=== PATIENT | male | born 1955 | race Caucasian/White ===

== ENCOUNTER 2025-03-13 19:22 | Inpatient (IN) | payer MEDICARE, MEDICAID ==
[~2025-03-13] VITALS: Ht 175.3 cm; Wt 109.1 kg
[~2025-03-13 19:22] MED LIST: CHOL20007 PO; ESOM40CA39 PO; FERR325T24 PO; HYDR25TA88 PO; LOSA-534 PO; MULT-1018 PO; PANT40TA2 PO; SIMV20TA20 PO; SUCR1TAB PO; TAMS0.4C39 PO
--- NOTE | 2025-03-13 19:44 | ED.PDOC ---
HPI Comments HPI: 69-year-old male who came to ER via EMS for palpitations. Per EMS, patient was just discharged [facility] today (patient states it was yesterday, and that his Fisher catheter was removed, and were trying to rule out CVA and IL). Was noted by family members that patients gait was unsteady so paramedics were called. Patient was tachycardic on scene, so patient was given 300 cc of plain NSS while en route. Patient denies any pain at this time for care. Patient was admitted here last April 2023 diagnosed with: 1. Dizziness likely due to vasovagal syncope vs dehydration vs antihypertensive medication 2. Non-Hodgkin's lymphoma 3. Obesity 4. Generalized weakness likely due to IV immunoglobulin/non-Hodgkin's lymph 5. Microcytic anemia Past Medical History: Hypertension, dyslipidemia, non-Hodgkin's lymphoma Surgical history: Denies Family history: Denies Personal and Social History: Denies REVIEW OF SYSTEMS: PHYSICAL EXAM: HPI: Poor Historian. Patient does not feel any tachycardia or palpitations. History is very limited from the patient. No family members available at bedside for evaluation. EMS stated that the daughter is on her way. Patient is also a patient here in the hospital. Patient just left [facility] today per EMS and yesterday per patient. Patient states that he they had a Fisher catheter in him and they removed it. It does not know what they were doing for him in [facility]. He said they were trying to rule out stroke and rule out heart attack. Patient denies any fall or trauma or injury. Denies any pain anywhere in his body at t his time. Denies any complaints. REVIEW OF SYSTEMS: CONSTITUTIONAL: Denies acute: fever, diaphoresis, chills, HEAD: Denies acute: headache, photophobia Eyes: Denies acute: Double vision, vision loss, eye pain, eye discharge. EARS: Denies acute: tinnitus, hearing loss, ear discharge, ear pain, THROAT: Denies acute: sore throat, swelling, difficulty swallowing , pain with swallowing, change in voice. NECK: Denies acute: neck pain, neck swelling, stiff neck. HEART: Denies acute : chest pain, palpitations, LUNGS: Denies acute: SOB, wheezing, cough, hemoptysis ABDOMEN: Denies acute: abdominal pain, Nausea, Vomiting, diarrhea, melena , hematemesis, hematochezia SKIN: Denies acute: rash, redness, lesions, itchiness. EXTREMITIES: Denies acute: calf pain, numbness, tingling, weakness, denies pain in extremity. Denies acute: Low back pain. Neuro: Denies acute: focal neurological deficit, motor or sensory focal neurological deficit, tremors, seizure like activity, confusion, dizziness, change in mental status, loss of bowel or bladder function, cauda equina like symptoms. : Denies acute: dysuria, hematuria, flank pain, increase in urinary frequency. PSYCH: Denies acute: hallucination, suicidal ideation, homicidal ideation. PHYSICAL EXAM: General: ----no----acute distress, awake and alert. Head: normocephalic, atraumatic. No raccoon's eyes, no kaba sign. Neck: supple, trachea is midline, no swelling. Throat: Normal phonation. Eyes:, no erythema, no purulent discharge, no proptosis, no icterus. Heart: regular tachycardic, no significant murmur appreciated. Lungs: no apparent respiratory distress, Able to speak in full sentences. No wheezing, no rhonchi, no crackles. No stridors Clear to auscultation bilaterally. Abdomen: non tender to palpation, non distended, soft, no guarding, no rebound, + bowel sounds. Morbidly obese. Patient wearing diaper. Neuro: Awake, Alert, oriented to name, self, situation, follows commands GCS=15. Speech is normal. Skin: no petechia, no purpura, no cyanosis, slightly-pale, not jaundice. Lower extremities: --trace bilateral - Pitting edema no deformity, no focal swelling, no calf TTP. Makes eye contact. moves all four extremities. Face: no apparent facial droop. No nuchal rigidity, Kernig's sign, Brudzinski's sign, no meningeal signs. ED COURSE: DISCLAIMER: This medical document was created using an electronic medical record system with voice recognition software and computerized dictation system. Although this document has been carefully reviewed, there might still be some phonetic and typographical errors. Occasional wrong-word or "sound-alike" substitutions may have occurred due to the inherent limitations of voice recognition software. These areas are purely typographical due to imperfections of the software programs and do not reflect any compromise in the patient's medical care. Please read the chart carefully and recognize, using context, where these substitutions have occurred. 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 Allergies: Coded Allergies: NO KNOWN ALLERGIES (Unverified , 05/11/23) Home Meds Active Scripts Pantoprazole Sodium Sesquihydr (Protonix) 40 Mg Tab, 40 MG PO BID, #60 TAB Prov:ANJEL ADAM MD 03/30/23 Sucralfate (Sucralfate) 1 Gm Tab, 1 GM PO BID, #60 TAB Prov:ANJEL ADAM MD 03/30/23 Reported Medications Esomeprazole Magnesium Trihydr (Nexium) 40 Mg Cap, 1 CAP PO DAILY, #30 CAP 5 Refills 03/27/23 Tamsulosin Hcl (Tamsulosin Hcl) 0.4 Mg Cap, 0.4 MG PO HS for 30 Days, MG 03/27/23 Simvastatin (Simvastatin) 20 Mg Tab, 20 MG PO HS for 30 Days 03/27/23 Multiple Vitamin (Multivitamins) Tab, 1 TAB PO DAILY, #90 TAB 3 Refills 03/27/23 Losartan Potassium (Losartan Potassium) 50 Mg Tab, 50 MG PO BID for 30 Days, MG 03/27/23 Hydralazine Hcl (Hydralazine Hcl) 25 Mg Tab, 25 MG PO BID, MG 03/27/23 Ferrous Sulfate (Ferrous Sulfate) 325 Mg Tab, 325 MG PO DAILY, MG 03/27/23 Cholecalciferol (VITAMIN D3) 2,000 Unit Tab, 1 TAB PO DAILY, #30 TAB 5 Refills 03/27/23 Information Source: Patient, Emergency Med Personnel Mode of Arrival: EMS Past Medical History PAST MEDICAL HISTORY: Cancer, High Lipids, HTN Surgical History: Denies all surgeries Family History Family History: Reviewed,noncontributory to illness Social History Smoker: Non-Smoker Alcohol: Denies ETOH Use Drugs: Denies Drug Use Lives In: Home EKG EKG : Pulse Rate (adult): 144 Cardiac Rhythm: JT Was a procedure done? Was a procedure done?: No CP Differential Dx Differential Diagnosis: A-fib, A-Flutter, Angina, Anxiety / Panic Attack, Digo roxann Toxicity, Electrolyte Disorder, Heart Failure, Hyperthyroidism, Hyperventilation, Hypoxia, MAT, IL, PAC's, PSVT, Pulmonary Embolus, Sinus Tachycardia, Torsades De Pointes, Ventricular Dysrhythmia, V-Fib, V-Tach, Other (As far as generalized weakness: Includes but not limited to thyroid disease, encephalopathy, electrolyte abnormality, sepsis, infection, intracranial pathology, drug adverse effects, arrhythmia, kidney insufficiency, ACS, CVA, malignancy, anemia) X-Ray, Labs, Meds, VS Vital Signs Date Time Temp Pulse Resp B/P (MAP) Pulse Ox O2 Delivery O2 Flow Rate FiO2 03/13/25 19:55 98.4 144 17 174/99 (124) 93 98.4 03/13/25 19:55 Room Air* 0 21 03/13/25 19:43 144 03/13/25 19:29 144 03/13/25 19:22 97.7 145 18 129/93 95 97.7 Lab Test 03/13/25 20:56 03/13/25 20:39 03/13/25 19:55 Range/Units Troponin I High Sensitivity 36 16 12 </=54 ng/L White Blood Count 6.3 4.4-10.8 10^3/uL Red Blood Count 5.34 4.5-5.90 10^6/uL Hemoglobin 15.6 13.5-17.5 g/dL Hematocrit 44.5 41.0-53.0 % Mean Corpuscular Volume 83.4 80.0-100.0 fL Mean Corpuscular Hemoglobin 29.2 28.0-32.0 pg Mean Corpuscular Hemoglobin Concent 35.1 32.0-36.0 g/dL Red Cell Distribution Width 13.5 11.8-14.3 % Platelet Count 169 140-450 10^3/uL Mean Platelet Volume 8.5 6.9-10.8 fL Neutrophils (%) (Auto) 81.0 H 37.0-80.0 % Lymphocytes (%) (Auto) 11.7 10.0-50.0 % Monocytes (%) (Auto) 5.0 0.0-12.0 % Eosinophils (%) (Auto) 1.5 0.0-7.0 % Basophils (%) (Auto) 0.8 0.0-2.0 % Neutrophils # (Auto) 5.1 1.6-8.6 10 ^3/uL Lymphocytes # (Auto) 0.7 0.4-5.4 10 ^3/uL Monocytes # (Auto) 0.3 0-1.3 10 ^3/uL Eosinophils # (Auto) 0.1 0-0.8 10 ^3/uL Basophils # (Auto) 0 0-0.2 10 ^3/uL Nucleated Red Blood Cells 0.1 % D-Dimer, Quantitative 0.29 0.0-0.49 mg/L FEU Sodium Level 148 H 136-145 mmol/L Potassium Level 3.1 L 3.5-5.1 mmol/L Chloride Level 108 H 98-107 mmol/L Carbon Dioxide Level 28 20-31 mmol/L Anion Gap 12 5-15 Blood Urea Nitrogen 9 9-23 mg/dL Creatinine 1.01 0.700-1.30 mg/dL Glomerular Filtration Rate Calc 82 >90 mL/min BUN/Creatinine Ratio 8.9 L 10.0-20.0 Serum Glucose 147 H 74-106 mg/dL Hemoglobin A1c 4.8 <5.7 % A1C Lactic Acid Level 1.3 0.4-2.0 mmol/L Calcium Level 9.6 8.7-10.4 mg/dL Magnesium Level 2.0 1.6-2.6 mg/dL Total Bilirubin 0.9 0.2-1.0 mg/dL Aspartate Amino Transferase (AST) 17 13-40 U/L Alanine Aminotransferase (ALT) 12 7-40 U/L Alkaline Phosphatase 117 H 46-116 U/L B-Type Natriuretic Peptide 49.20 0-100 pg/mL Total Protein 7.0 5.7-8.2 g/dL Albumin 4.6 3.2-4.8 g/dL Current Medications Medications (Trade) Dose Ordered Sig/Lauri Route Start Time Stop Time Status Last Admin Clonidine HCl (Catapres Tablet) 0.1 mg Q4HP PRN PO 03/13/25 21:00 03/14/25 01:18 Potassium Chloride (Klor-Con Tablet) 40 meq ONCE ONCE PO 03/13/25 21:00 03/13/25 21:17 DC 03/13/25 23:24 [facility] [id number] [facility] [address] Ph: [phone] DIAGNOSTIC IMAGING Diagnostic Imaging Report : [id number] Signed PATIENT: TERRY ZAVALA ACCT: [id number] UNIT: [id number] : 1955 LOC: OVERFLOW ROOM / BED: [address] [place] [address] AGE / SEX: 69 / M ADM STATUS: ADM IN SERVICE 16 ORDERING PHYSICIAN: YAMILKA THOMPSON DO PROCEDURE(s): ABPL - CT AB PEL WO CON-NO ORAL OR IV REASON: weak, unclear presentation ORDER NUMBER(s): [id number], ACCESSION NUMBER(s): [id number] CLINICAL HISTORY: weak, unclear presentation TECHNIQUE: CT of the abdomen and pelvis was performed without intravenous contrast. This exam was performed according to our departmental dose optimization program. Up-to-date CT equipment and radiation dose reduction techniques are utilized as appropriate. CTDI: 20.67 DLP: 1454.87 WID: COMPARISON: CT CT AB PEL WO CON-NO ORAL OR IV on DOS: 03/25/23 the report FINDINGS: Lower Thorax: Linear bibasilar scarring or atelectasis. 5 mm right middle lobe pulmonary nodule series 4, image 17. Normal-sized heart with small pericardial fluid. Coronary artery calcifications Up to moderate in the left anterior descending coronary artery. Mild aortic valve calcification. Liver and Biliary system: Unremarkable. Spleen: Mild splenomegaly. Adrenal Glands and Kidneys: Normal adrenal glands. Very mild h ydroureteronephrosis without obstructing calculus. There are nonobstructing left renal calculi largest in the left lower pole measuring 1.2 cm on series 5, image 114. Hypodense an intermediate density left renal lesions not optimally evaluated without contrast. Mild perinephric soft tissue stranding. Pancreas and Retroperitoneum: Grossly normal pancreas. Mildly prominent retrope ritoneal lymph nodes. Aorta and Major Vessels: Mildly ectatic aortoiliac vessels. Mild calcified plaque in the aortoiliac vessels. Bowel, Mesentery and Peritoneal space: Normal caliber small and large bowel. Normal appendix. No free air or fluid collection. Mild colonic diverticulosis. Pelvis: Moderate distention of the urinary bladder with mild perivesical stranding. There is prostatomegaly with dystrophic calcifications. No pelvic lymphadenopathy. Soft tissue plaque at the origin and of the right inguinal canal. Small fat containing left inguinal hernia. Abdominal wall and Osseous Structures: Tiny sclerotic foci in the proximal femurs and pelvis likely bone islands. Grade 1 anterolisthesis at L5-S1 with bilateral L5 spondylolysis. Multilevel lower thoracic and lumbar spondylosis. No destructive osseous lesion. IMPRESSION: 1. Moderate distention of the urinary bladder with mild perivesical stranding which could reflect cystitis. Correlate with urinalysis. That could be a component of bladder outlet obstruction given prostatomegaly. 2. Very mild bilateral hydroureteronephrosis without obstructing calculus. This could be related to reflux versus urinary tract infection. This could also be evaluated by urinalysis. 3. Calcified coronary artery disease up to moderate in the left anterior descending coronary artery. 4. Mild splenomegaly. 5. Nonobstructing left renal calculi. ATED BY: SHIMON HERNANDEZ MD DICTATED DATE/TIME: 03/13/252256 SIGNED BY: SHIMON HERNANDEZ MD SIGNED DATE/TIME: 03/13/252256 CC: [place] [address] Ph: [phone] DIAGNOSTIC IMAGING Diagnostic Imaging Report : [id number] Signed PATIENT: TERRY ZAVALA ACCT: [id number] UNIT: [id number] : 1955 LOC: OVERFLOW ROOM / BED: [address] [place] [address] AGE / SEX: 69 / M ADM STATUS: ADM IN SERVICE 16 ORDERING PHYSICIAN: YAMILKA THOMPSON DO PROCEDURE(s): CXRP - CHEST PORTABLE REASON: alonso adams ORDER NUMBER(s): [id number], ACCESSION NUMBER(s): [id number] CHEST RADIOGRAPH Indication: alonso adams Technique: Single frontal view of the chest was obtained COMPARISON: XR CHEST 1 VIEW on DOS: 03/10/25, XY CHEST PORTABLE on DOS: 04/12/23, XY CHEST PORTABLE on DOS: 03/25/23 FINDINGS: Lines and Tubes: None Lungs: Clear Pleura: No effusion. No pneumothorax. Cardiomediastinal contours: Unremarkable Bones: Unremarkable IMPRESSION: 1. No acute disease. ATED BY: ANDREW PICKENS MD DICTATED DATE/TIME: 03/13/252336 SIGNED BY: ANDREW PICKENS MD SIGNED DATE/TIME: 03/13/252336 CC: [place] [address] Ph: [phone] DIAGNOSTIC IMAGING Diagnostic Imaging Report : [id number] Signed PATIENT: TERRY ZAVALA ACCT: [id number] UNIT: [id number] : 1955 LOC: OVERFLOW ROOM / BED: [address] [place] [address] AGE / SEX: 69 / M ADM STATUS: ADM IN SERVICE 17 ORDERING PHYSICIAN: YAMILKA THOMPSON DO PROCEDURE(s): HWOCT - HEAD WITHOUT CONTRAST REASON: weak ORDER NUMBER(s): [id number], ACCESSION NUMBER(s): [id number] CLINICAL HISTORY: weak TECHNIQUE: Helical imaging carried out from skull base to vertex without intravenous contrast. This exam was performed according to our departmental dose optimization program. Up-to-date CT equipment and radiation dose reduction techniques are utilized as appropriate. CTDIVol: 53.75+ 53.71 mGy DLP: 2370.88 mGy-cm WID: COMPARISON: None available. Report from CT head dated 04/12/2023 FINDINGS: Mild cerebral volume loss with concordant prominence of the subarachnoid spaces and ventricles. There is mild patchy low attenuation in the cerebral white matter consistent with nonspecific white matter disease. Chronic lacunar infarcts in the bilateral caudate body. There is no midline shift or mass effect. The laureano white matter interfaces are maintained. The basal cisterns are patent. There is no evidence of acute intracranial hemorrhage or extra-axial fluid collection. The mastoid air cells and visualized paranasal sinuses are well-aerated. IMPRESSION: 1. No acute intracranial abnormality. 2. Mild cerebral volume loss and mild chronic microvascular ischemic change. 3. Chronic lacunar infarcts in the bilateral caudate body. ATED BY: SHIMON HERNANDEZ MD DICTATED DATE/TIME: 03/13/252201 SIGNED BY: SHIMON HERNANDEZ MD SIGNED DATE/TIME: 03/13/252201 CC: Time of 1ST Reevaluation: 19:50 Reevaluation 1ST: Unchanged Patient Education/Counseling: Diagnosis, Treatment Family Education/Counseling: No Family Present Comments MDM: patient presented with the above HPI.--generalized weakness----workup was initiated. patient was found with the above mentioned diagnosis. the following medications were ordered: please refer to order lists of meds and tests obtained by myself Dr. Thompson. Patient ED course and VS have been stabilized. Patient has been reassessed in the ED and remained in a stable condition. Pertinent incidental findings were discussed with the patient and/or family. Patient/family voices understanding and is agreeable with plan. Patient has been observed in the ED adequate length of time to insure impr ovement/stability. Escalation of care considered: Consideration of escalation to observation or admission Potassium was replaced. Patient was ADMITTED to the medicine team for further evaluation and treatment of their presentation. All the reports of any imaging studies that were ordered by myself were reviewed by myself. SEPSIS Sepsis Screen Date sepsis recognized/suspect: Mar 13, 2025 Time Sepsis recognized/suspect: 1921 Recent Procedure: No On Antibiotic Therapy: No Respiratory Rate >20: No Heart Rate >90: No Temp<36 C (96.8 F) or >38.3 C: No SBP <90 or MAP <65 mmHG: No New Acute Mental Status Change: No Is the patient on CPAP, BIPAP,: No Physician Orders Stock Selector (03/13/25 ) Electrocardigram (03/13/25 19:42) Electrocardigram (03/13/25 20:42) Electrocardigram (03/13/25 22:42) Chest Portable (03/13/25 20:17) Ct Ab Pel Wo Con-No Oral Or Iv (03/13/25 20:17) Head Without Contrast (03/13/25 20:18) Atorvastatin (Lipitor) (03/13/25 22:00) Metoprolol Tartrate Tablet (Lopressor Ta (03/13/25 22:00) Amlodipine Tablet (Norvasc Tablet) (03/14/25 10:00) Clonidine Hcl Tablet (Catapres Tablet) (03/13/25 21:00) Allergies (03/13/25 20:55) Code Status (03/13/25 20:55) Sodium Chloride Lock (Saline Lock Ns) (03/13/25 22:00) Oxygen Per Hour (03/13/25 20:55) Hydrocodone-Acet 5/325mg Tab ([place] 5/32 (03/13/25 21:00) Ondansetron Hcl (Zofran) (03/13/25 21:00) Docusate Sodium Capsule (Colace Capsule) (03/13/25 21:00) Fall Risk Precautions In Place QSHIFT (03/13/25 20:55) Complete Blood Count (03/14/25 04:00) Comprehensive Metabolic Panel (03/14/25 04:00) Cardiac Diet-2gna,Lofat,Lochol (03/14/25 Breakfast) Condition: Serious (03/13/25 20:55) Acetaminophen Tablet (Tylenol Tablet) (03/13/25 21:00) Maintain Bed Rest (03/13/25 20:55) Sequential Compression Device (03/13/25 ) Vital Signs Date Time Temp Pulse Resp B/P (MAP) Pulse Ox O2 Delivery O2 Flow Rate FiO2 03/13/25 19:55 98.4 144 17 174/99 (124) 93 98.4 03/13/25 19:55 Room Air* 0 21 03/13/25 19:43 144 03/13/25 19:29 144 03/13/25 19:22 97.7 145 18 129/93 95 97.7 Laboratory Tests Test 03/13/25 19:55 Lactic Acid Level 1.3 mmol/L (0.4-2.0) White Blood Count 6.3 10^3/uL (4.4-10.8) Medications Medications Dose Ordered Sig/Lauri Route Start Time Stop Time Status Last Admin Dose Admin Clonidine HCl 0.1 mg Q4HP PRN PO 03/13/25 21:00 03/14/25 01:18 Potassium Chloride 40 meq ONCE ONCE PO 03/13/25 21:00 03/13/25 21:17 DC 03/13/25 23:24 Departure 1 Departure Time of Disposition: 20:41 Impression: Primary Impression: Tachycardia Additional Impressions: Generalized weakness Hypokalemia Acute urinary retention Disposition: 09 ADMITTED INPATIENT Admit to: Tele Condition: Guarded Discharged With: Self Critical Care Note Critical Care Time?: Yes Heart Score Heart Score: Heart Score Response (Comments) Value History Slightly Suspicious 0 EKG Repolarization Disturb 1 Age >65 2 Risk Factors >3 or Hx ASHD 2 Troponin Normal limit 0 Total 5 I personally scribed for YAMILKA THOMPSON DO ([email or web address]) on 03/13/25 at 19:43. Electronically submitted by Gage Nelson ([facility]). I personally scribed for YAMILKA THOMPSON DO ([email or web address]) on 03/13/25 at 19:51. Electro nically submitted by Gage Nelson ([facility]). I personally scribed for YAMILKA THOMPSON DO ([email or web address]) on 03/13/25 at 22:05. Elec tronically submitted by Gage Nelson ([facility]). YAMILKA THOMPSON DO Mar 13, 2025 19:43
[2025-03-13 20:10] LABS: Hematocrit 44.5 % (41.0-53.0); Hemoglobin 15.6 g/dL (13.5-17.5); Mean Corpuscular Hemoglobin 29.2 pg (28.0-32.0); Mean Corpuscular Volume 83.4 fL (80.0-100.0); Nucleated Red Blood Cells % 0.1 %
[2025-03-13 20:24] LABS: Alanine Aminotransferase 12 U/L (7-40); Albumin 4.6 g/dL (3.2-4.8); Alkaline Phosphatase 117 U/L (46-116); Anion Gap 12 (5-15); BUN/Creatinine Ratio 8.9 (10.0-20.0); Bilirubin, Total 0.9 mg/dL (0.2-1.0); Blood Urea Nitrogen 9 mg/dL (9-23); Calcium 9.6 mg/dL (8.7-10.4); Carbon Dioxide 28 mmol/L (20-31); Chloride 108 mmol/L (98-107); Glucose 147 mg/dL (74-106); Magnesium 2.0 mg/dL (1.6-2.6); Potassium 3.1 mmol/L (3.5-5.1); Sodium 148 mmol/L (136-145); Total Protein 7.0 g/dL (5.7-8.2)
[2025-03-13] MEDS ORDERED: ACETAMINOPHEN 325 MG TAB PO PRN (21:00)
[2025-03-13] MEDS ORDERED: DOCUSATE SOD 100 MG CAP PO PRN (21:00)
[2025-03-13] MEDS: LABETALOL HCL 20 MG/4 ML VL IV ONE (21:00)
[2025-03-13] MEDS ORDERED: HYDROcodone-ACET 5/325MG TAB PO PRN (21:00)
[2025-03-13] MEDS ORDERED: ONDANSETRON HCL 4 MG/2 ML VIAL IV PRN (21:00)
[2025-03-13] MEDS ORDERED: POTASSIUM CHL 20 Meq TABLET PO ONE (21:15)
[2025-03-13] MEDS ORDERED: MORPHINE SULFATE INJ 2 MG/ml SYRG IV PRN (21:30)
[2025-03-13] MEDS ORDERED: NITROGLYCERIN 0.4 MG SL TAB SL PRN (21:30)
--- NOTE | 2025-03-13 21:31 | DVHHP2 ---
History of Present Illness Reason for Visit: Palpitations History of Present Illness The patient is a 69-year-old male with past medical history of non-Hodgkin's lymphoma, currently on remission; but on treatment every 3 months, dementia, hyperlipidemia, and hypertension who presented to [facility] ED with complaint of palpitations. As reported by daughter, patient was just discharged from [facility] today, but developed confusion state, unable to urinate, getting worse that prompted this visit. Daughter states that patient had Fisher catheter at [facility] to rule out stroke, but was removed because he was urinating on his own before discharge. Patient was seen and evalu ated in the ED, laboratory data shows WBC 6.3, platelets 169, sodium 148, potassium 3.1, BUN 9, creatinine 1.01, GFR 82, glucose 147, calcium 9.6, BNP 49.2, troponin 12, D-dimer 0.29, blood pressure 174/99 trending down to 136/96, heart rate 145 trending down to 102, temperature 98.4 F, O2 saturation 93% on oxygen. Head CT showed no acute intracranial abnormality. Please see medication orders section in the computer. On my assessment, daughter at bedside, patient denied chest pain, no headache, dizziness, diaphoresis, shortness of breaths, no diarrhea, nausea, vomiting, fever, no chills. Patient was admitted for further evaluation and medical management. Past Medical History Non-Hodgkin's lymphoma, Dementia, High Lipids, HTN Past Surgical History Denies all surgeries Family History Reviewed, noncontributory to the management of this case. Past Social History The patient lives at home, denies smoking, alcohol or illicit drugs abuse. Review of Systems Constitutional: Yes: Weakness; No: Fever, Chills, Sweats, Malaise, Other Eyes: No: Pain, Vision change, Conjunctivae inflammation, Eyelid inflammation, Other, Redness ENT: No: Ear pain, Ear discharge, Nose pain, Nose discharge, Nose congestion, Mouth pain, Mouth swelling, Throat pain, Throat swelling, Other Respiratory: No: Cough, Dry, Shortness of breath, SOB with excertion, Wheezing, Hemoptysis, Pleuritic Pain, Sputum, Wheezing, Other Cardiovascular: No: Chest Pain, Palpitations, Orthopnea, Paroxysmal Noc. Dyspnea, Edema, Lt Headedness, Other Gastrointestinal: No: Nausea, Vomiting, Abdominal Pain, Diarrhea, Constipation, Melena, Hematochezia, Other Genitourinary: No Dysuria, No Frequency, No Incontinence, No Hematuria; Retention, Other (Fisher catheter) Musculoskeletal: No: other, neck pain, shoulder pain, arm pain, back pain, hand pain, leg pain, foot pain Skin: No: Rash, Lesions, Jaundice, Bruising, Other Neurological: Confusion; No: Weakness, Numbness, Incoordination, Change in speech, Seizures, Other Allergies: Coded Allergies: NO KNOWN ALLERGIES (Unverified , 05/11/23) Medications Current Medications Medications Dose Ordered Sig/Lauri Route Start Time Stop Time Status Last Admin Dose Admin Atorvastatin Calcium 20 mg HS PO 03/13/25 22:00 Metoprolol Tartrate 50 mg BID PO 03/13/25 22:00 Amlodipine Besylate 10 mg DAILY PO 03/14/25 10:00 Clonidine HCl 0.1 mg Q4HP PRN PO 03/13/25 21:00 Sodium Chloride 10 ml Q8HR IV 03/13/25 22:00 Acetaminophen/ Hydrocodone Bitart 1 tab Q4HP PRN PO 03/13/25 21:00 Ondansetron HCl 4 mg Q4HP PRN IV 03/13/25 21:00 Docusate Sodium 100 mg BIDPRN PRN PO 03/13/25 21:00 Acetaminophen 650 mg Q6HP PRN PO 03/13/25 21:00 Exam Vital Signs Vital Signs Date Time Temp Pulse Resp B/P (MAP) Pulse Ox O2 Delivery O2 Flow Rate FiO2 03/13/25 19:55 98.4 144 17 174/99 (124) 93 98.4 03/13/25 19:55 Room Air* 0 21 General Appearance: Alert, Cooperative, No acute distress, Other (Oriented x2) HEENT: Atraumatic, PERRLA, EOMI, Mucous membr. moist/pink Respiratory: Normal air movement Cardiovascular: Regular rate, Normal S1, Normal S2, No murmurs Abdominal: Normal bowel sounds, Soft, No tenderness, No hepatospenomegaly, No masses Extremities: No clubbing, No cyanosis, No edema, Normal pulses, No tenderness/swelling Skin: No rashes, No breakdown, No significant lesion Neuro: Normal speech, Normal tone, Sensation intact, Cranial nerves 3-12 NL, Reflexes 2+, Other (Generalized weakness) Psych/Mental Status: Mental status NL, Mood NL Labs/Xrays Labs Test 03/13/25 20:39 03/13/25 19:55 Range/Units White Blood Count 6.3 4.4-10.8 10^3/uL Red Blood Count 5.34 4.5-5.90 10^6/uL Hemoglobin 15.6 13.5-17.5 g/dL Hematocrit 44.5 41.0-53.0 % Mean Corpuscular Volume 83.4 80.0-100.0 fL Mean Corpuscular Hemoglobin 29.2 28.0-32.0 pg Mean Corpuscular Hemoglobin Concent 35.1 32.0-36.0 g/dL Red Cell Distribution Width 13.5 11.8-14.3 % Platelet Count 169 140-450 10^3/uL Mean Platelet Volume 8.5 6.9-10.8 fL Neutrophils (%) (Auto) 81.0 H 37.0-80.0 % Lymphocytes (%) (Auto) 11.7 10.0-50.0 % Monocytes (%) (Auto) 5.0 0.0-12.0 % Eosinophils (%) (Auto) 1.5 0.0-7.0 % Basophils (%) (Auto) 0.8 0.0-2.0 % Neutrophils # (Auto) 5.1 1.6-8.6 10 ^3/uL Lymphocytes # (Auto) 0.7 0.4-5.4 10 ^3/uL Monocytes # (Auto) 0.3 0-1.3 10 ^3/uL Eosinophils # (Auto) 0.1 0-0.8 10 ^3/uL Basophils # (Auto) 0 0-0.2 10 ^3/uL Nucleated Red Blood Cells 0.1 % D-Dimer, Quantitative 0.29 0.0-0.49 mg/L FEU Sodium Level 148 H 136-145 mmol/L Potassium Level 3.1 L 3.5-5.1 mmol/L Chloride Level 108 H 98-107 mmol/L Carbon Dioxide Level 28 20-31 mmol/L Anion Gap 12 5-15 Blood Urea Nitrogen 9 9-23 mg/dL Creatinine 1.01 0.700-1.30 mg/dL Glomerular Filtration Rate Calc 82 >90 mL/min BUN/Creatinine Ratio 8.9 L 10.0-20.0 Serum Glucose 147 H 74-106 mg/dL Lactic Acid Level 1.3 0.4-2.0 mmol/L Calcium Level 9.6 8.7-10.4 mg/dL Magnesium Level 2.0 1.6-2.6 mg/dL Total Bilirubin 0.9 0.2-1.0 mg/dL Aspartate Amino Transferase (AST) 17 13-40 U/L Alanine Aminotransferase (ALT) 12 7-40 U/L Alkaline Phosphatase 117 H 46-116 U/L B-Type Natriuretic Peptide 49.20 0-100 pg/mL Total Protein 7.0 5.7-8.2 g/dL Albumin 4.6 3.2-4.8 g/dL PATIENT: TERRY ZAVALA ACCT: [id number] UNIT: [id number] : 1955 LOC: OVERFLOW ROOM / BED: [address] [place] [address] AGE / SEX: 69 / M ADM STATUS: ADM IN SERVICE 17 ORDERING PHYSICIAN: YAMILKA THOMPSON DO PROCEDURE(s): HWOCT - HEAD WITHOUT CONTRAST REASON: weak ORDER NUMBER(s): [id number], ACCESSION NUMBER(s): [id number] CLINICAL HISTORY: weak TECHNIQUE: Helical imaging carried out from skull base to vertex without intravenous contrast. This exam was performed according to our departmental dose optimization program. Up-to-date CT equipment and radiation dose reduction techniques are utilized as appropriate. CTDIVol: 53.75+ 53.71 mGy DLP: 2370.88 mGy-cm WID: COMPARISON: None available. Report from CT head dated 04/12/2023 FINDINGS: Mild cerebral volume loss with concordant prominence of the subarachnoid spaces and ventricles. There is mild patchy low attenuation in the cerebral white matter consistent with nonspecific white matter disease. Chronic lacunar infarcts in the bilateral caudate body. There is no midline shift or mass effect. The laureano white matter interfaces are maintained. The basal cisterns are patent. There is no evidence of acute intracranial hemorrhage or extra-axial fluid collection. The mastoid air cells and visualized paranasal sinuses are well-aerated. IMPRESSION: 1. No acute intracranial abnormality. 2. Mild cerebral volume loss and mild chronic microvascular ischemic change. 3. Chronic lacunar infarcts in the bilateral caudate body. SEPSIS Sepsis Screen Date sepsis recognized/suspect: Mar 13, 2025 Time Sepsis recognized/suspect: 1954 Recent Procedure: No On Antibiotic Therapy: No Respiratory Rate >20: No Heart Rate >90: No Temp<36 C (96.8 F) or >38.3 C: No SBP <90 or MAP <65 mmHG: No New Acute Mental Status Change: No Is the patient on CPAP, BIPAP,: No Physician Orders Sack Repairer (03/13/25 ) Urinalysis (03/13/25 19:42) Electrocardigram (03/13/25 19:42) Troponin-I Hs (03/13/25 20:42) Troponin-I Hs (03/13/25 22:42) Electrocardigram (03/13/25 20:42) Electrocardigram (03/13/25 22:42) Chest Portable (03/13/25 20:17) Ct Ab Pel Wo Con-No Oral Or Iv (03/13/25 20:17) Type And Screen (03/13/25 20:17) Head Without Contrast (03/13/25 20:18) Atorvastatin (Lipitor) (03/13/25 22:00) Metoprolol Tartrate Tablet (Lopressor Ta (03/13/25 22:00) Amlodipine Tablet (Norvasc Tablet) (03/14/25 10:00) Clonidine Hcl Tablet (Catapres Tablet) (03/13/25 21:00) Hemoglobin A1c (03/13/25 20:55) Allergies (03/13/25 20:55) Code Status (03/13/25 20:55) Sodium Chloride Lock (Saline Lock Ns) (03/13/25 22:00) Oxygen Per Hour (03/13/25 20:55) Hydrocodone-Acet 5/325mg Tab ([place] 5/32 (03/13/25 21:00) Ondansetron Hcl (Zofran) (03/13/25 21:00) Docusate Sodium Capsule (Colace Capsule) (03/13/25 21:00) Fall Risk Precautions In Place QSHIFT (03/13/25 20:55) Complete Blood Count (03/14/25 04:00) Comprehensive Metabolic Panel (03/14/25 04:00) Cardiac Diet-2gna,Lofat,Lochol (03/14/25 Breakfast) Condition: Serious (03/13/25 20:55) Acetaminophen Tablet (Tylenol Tablet) (03/13/25 21:00) Maintain Bed Rest (03/13/25 20:55) Sequential Compression Device (03/13/25 ) Vital Signs Date Time Temp Pulse Resp B/P (MAP) Pulse Ox O2 Delivery O2 Flow Rate FiO2 03/13/25 19:55 98.4 144 17 174/99 (124) 93 98.4 03/13/25 19:55 Room Air* 0 21 03/13/25 19:43 144 03/13/25 19:29 144 03/13/25 19:22 97.7 145 18 129/93 95 97.7 Laboratory Tests Test 03/13/25 19:55 Lactic Acid Level 1.3 mmol/L (0.4-2.0) White Blood Count 6.3 10^3/uL (4.4-10.8) Assessment/Plan Assessment/Plan Palpitations Tachycardia Hypokalemia Acute urinary retention Generalized weakness Plan 1. Admit to telemetry unit 2. Breathing treatment 3. Pain control management 4. Management of fluids and electrolytes 5. Consultation for Urology/hospitalist 6. Diagnostic tests head CT 7. DVT prophylaxis-on SCDs 8. Repeat labs CBC, CMP in a.m. 9. Continue with current medical management 10. Treatment plan discussed with patient and RN. Patient verbalized understanding. Plan discussed with: Patient, Other (RN) My Orders Orders - ZACH MORIN DNP Procedure Category Date Status Time Atorvastatin (Lipitor) PHA 03/13/25 In Process 22:00 Metoprolol Tartrate PHA 03/13/25 In Process Tablet (Lopressor Ta 22:00 Amlodipine Tablet PHA 03/14/25 In Process (Norvasc Tablet) 10:00 Clonidine Hcl Tablet PHA 03/13/25 In Process (Catapres Tablet) 21:00 Hemoglobin A1c LAB 03/13/25 In Process 20:55 Allergies JAMES 03/13/25 In Process 20:55 Code Status CODE 03/13/25 Transmitted 20:55 Sodium Chloride Lock PHA 03/13/25 In Process (Saline Lock Ns) 22:00 Oxygen Per Hour RT 03/13/25 Transmitted 20:55 Hydrocodone-Acet PHA 03/13/25 In Process 5/325mg Tab ([place] 21:00 Ondansetron Hcl PHA 03/13/25 In Process (Zofran) 21:00 Docusate Sodium PHA 03/13/25 In Process Capsule (Colace 21:00 Fall Risk Precautions JAMES 03/13/[address] 20:55 Complete Blood Count LAB 03/14/25 Verified 04:00 Comprehensive LAB 03/14/25 Verified Metabolic Panel 04:00 Cardiac DIET 03/14/25 Transmitted Diet-2gna,Lofat,Lochol Breakfast Condition: Serious JAMES 03/13/25 In Process 20:55 Acetaminophen Tablet PHA 03/13/25 In Process (Tylenol Tablet) 21:00 Maintain Bed Rest JAMES 03/13/25 In Process 20:55 Sequential JAMES 03/13/25 In Process Compression Device Problem List: (1) Palpitations (2) Tachycardia (3) Hypokalemia (4) Acute urinary retention (5) Generalized weakness Date of Service: Mar 13, 2025 Billing Provider: ZACH MORIN DNP Common Visit Codes: [id number] INP/OBS CARE (HIGH) ZACH MORIN DNP Mar 13, 2025 21:31
[2025-03-13] MEDS: SODIUM CHLOR 0.9% PF (SALINE LOCK) 10ML VIAL/SYR IV SCH (22:00)
[2025-03-13 22:03] VITALS: BP 154/97; PULSE 87; RESP 18; TEMP 98; O2SAT 95
--- NOTE | 2025-03-13 22:05 | DVH ---
CLINICAL HISTORY: weak TECHNIQUE: Helical imaging carried out from skull base to vertex without intravenous contrast. This exam was performed according to our departmental dose optimization program. Up-to-date CT equipment and radiation dose reduction techniques are utilized as appropriate. CTDIVol: 53.75+ 53.71 mGy DLP: 2370.88 mGy-cm WID: COMPARISON: None available. Report from CT head dated 04/12/2023 FINDINGS: Mild cerebral volume loss with concordant prominence of the subarachnoid spaces and ventricles. There is mild patchy low attenuation in the cerebral white matter consistent with nonspecific white matter disease. Chronic lacunar infarcts in the bilateral caudate body. There is no midline shift or mass effect. The laureano white matter interfaces are maintained. The basal cisterns are patent. There is no evidence of acute intracranial hemorrhage or extra-axial fluid collection. The mastoid air cells and visualized paranasal sinuses are well-aerated. IMPRESSION: 1. No acute intracranial abnormality. 2. Mild cerebral volume loss and mild chronic microvascular ischemic change. 3. Chronic lacunar infarcts in the bilateral caudate body.
[2025-03-13 22:41] LABS: Urine Protein, UAD Negative (Negative)
--- NOTE | 2025-03-13 23:00 | DVH ---
CLINICAL HISTORY: weak, unclear presentation TECHNIQUE: CT of the abdomen and pelvis was performed without intravenous contrast. This exam was performed according to our departmental dose optimization program. Up-to-date CT equipment and radiation dose reduction techniques are utilized as appropriate. CTDI: 20.67 DLP: 1454.87 WID: COMPARISON: CT CT AB PEL WO CON-NO ORAL OR IV on DOS: 03/25/23 the report FINDINGS: Lower Thorax: Linear bibasilar scarring or atelectasis. 5 mm right middle lobe pulmonary nodule series 4, image 17. Normal-sized heart with small pericardial fluid. Coronary artery calcifications Up to moderate in the left anterior descending coronary artery. Mild aortic valve calcification. Liver and Biliary system: Unremarkable. Spleen: Mild splenomegaly. Adrenal Glands and Kidneys: Normal adrenal glands. Very mild hydroureteronephrosis without obstructing calculus. There are nonobstructing left renal calculi largest in the left lower pole measuring 1.2 cm on series 5, image 114. Hypodense an intermediate density left renal lesions not optimally evaluated without contrast. Mild perinephric soft tissue stranding. Pancreas and Retroperitoneum: Grossly normal pancreas. Mildly prominent retroperitoneal lymph nodes. Aorta and Major Vessels: Mildly ectatic aortoiliac vessels. Mild calcified plaque in the aortoiliac vessels. Bowel, Mesentery and Peritoneal space: Normal caliber small and large bowel. Normal appendix. No free air or fluid collection. Mild colonic diverticulosis. Pelvis: Moderate distention of the urinary bladder with mild perivesical stranding. There is prostatomegaly with dystrophic calcifications. No pelvic lymphadenopathy. Soft tissue plaque at the origin and of the right inguinal canal. Small fat containing left inguinal hernia. Abdominal wall and Osseous Structures: Tiny sclerotic foci in the proximal femurs and pelvis likely bone islands. Grade 1 anterolisthesis at L5-S1 with bilateral L5 spondylolysis. Multilevel lower thoracic and lumbar spondylosis. No destructive osseous lesion. IMPRESSION: 1. Moderate distention of the urinary bladder with mild perivesical stranding which could reflect cystitis. Correlate with urinalysis. That could be a component of bladder outlet obstruction given prostatomegaly. 2. Very mild bilateral hydroureteronephrosis without obstructing calculus. This could be related to reflux versus urinary tract infection. This could also be evaluated by urinalysis. 3. Calcified coronary artery disease up to moderate in the left anterior descending coronary artery. 4. Mild splenomegaly. 5. Nonobstructing left renal calculi.
[2025-03-13 23:04] VITALS: PULSE 86; RESP 18; O2SAT 95
[2025-03-13] MEDS: METOPROLOL TARTRATE 50 MG TAB PO SCH (23:24)
[2025-03-13] MEDS: POTASSIUM CHL 20 Meq TABLET PO ONE (23:24)
[2025-03-13] MEDS: ATORVASTATIN 20 MG TAB PO SCH (23:24)
--- NOTE | 2025-03-13 23:40 | DVH ---
CHEST RADIOGRAPH Indication: tachy, weak Technique: Single frontal view of the chest was obtained COMPARISON: XR CHEST 1 VIEW on DOS: 03/10/25, XY CHEST PORTABLE on DOS: 04/12/23, XY CHEST PORTABLE on DOS: 03/25/23 FINDINGS: Lines and Tubes: None Lungs: Clear Pleura: No effusion. No pneumothorax. Cardiomediastinal contours: Unremarkable Bones: Unremarkable IMPRESSION: 1. No acute disease.
[2025-03-14] VITALS (8 sets, daily range): BP systolic 123–155; BP diastolic 77–112; PULSE 52–70; RESP 16–18; TEMP 97.6–97.9; O2SAT 93–98
[2025-03-14 06:20] LABS: Hematocrit 37.8 % (41.0-53.0); Hemoglobin 13.0 g/dL (13.5-17.5); Mean Corpuscular Hemoglobin 28.7 pg (28.0-32.0); Mean Corpuscular Volume 83.5 fL (80.0-100.0); Nucleated Red Blood Cells % 0.1 %
[2025-03-14 06:42] LABS: Albumin 3.7 g/dL (3.2-4.8); Alkaline Phosphatase 92 U/L (46-116); Anion Gap 9 (5-15); BUN/Creatinine Ratio 12.4 (10.0-20.0); Blood Urea Nitrogen 11 mg/dL (9-23); Calcium 8.9 mg/dL (8.7-10.4); Carbon Dioxide 30 mmol/L (20-31); Glucose 100 mg/dL (74-106); Potassium 3.7 mmol/L (3.5-5.1)
[2025-03-14 06:43] LABS: Bilirubin, Total 0.6 mg/dL (0.2-1.0)
--- NOTE | 2025-03-14 06:54 | ECG ---
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
[2025-03-14 06:57] LABS: Alanine Aminotransferase < 9 U/L (7-40); Chloride 110 mmol/L (98-107); Sodium 149 mmol/L (136-145); Total Protein 5.6 g/dL (5.7-8.2)
[2025-03-14] MEDS: MEMANTINE HCL 5 MG TAB PO SCH (10:18)
--- NOTE | 2025-03-14 12:16 | DVHPN2 ---
Progress Note Date Seen: Mar 14, 2025 Medical Necessity Reason Pt with a Central, PICC or Fol: No Subjective Patient reports: Feels better (Patient is calm, resting comfortably in bed. No apparent distress) Changes from previous H/P or p: Changes (Improved after Fisher catheter insertion) Objective vital signs Vital Sign Date Time Temp Pulse Resp B/P (MAP) Pulse Ox O2 Delivery O2 Flow Rate FiO2 03/14/25 10:18 133/96 03/14/25 10:00 59 03/14/25 09:00 97.8 16 93 97.8 03/14/25 08:00 Room Air* 0 21 Total Intake and Output 03/13/25 03/13/25 03/14/25 15:00 23:00 07:00 Intake Total 0 ml Output Total 1000 ml Balance -1000 ml medications Current Medications Medications Dose Ordered Sig/Lauri Route Start Time Stop Time Status Last Admin Dose Admin Atorvastatin Calcium 20 mg HS PO 03/13/25 22:00 03/13/25 23:24 20 MG Metoprolol Tartrate 50 mg BID PO 03/13/25 22:00 03/13/25 23:24 50 MG Amlodipine Besylate 10 mg DAILY PO 03/14/25 10:00 03/14/25 10:18 10 MG Clonidine HCl 0.1 mg Q4HP PRN PO 03/13/25 21:00 03/14/25 01:18 0.1 MG Sodium Chloride 10 ml Q8HR IV 03/13/25 22:00 03/14/25 06:15 10 ML Acetaminophen/ Hydrocodone Bitart 1 tab Q4HP PRN PO 03/13/25 21:00 Ondansetron HCl 4 mg Q4HP PRN IV 03/13/25 21:00 Docusate Sodium 100 mg BIDPRN PRN PO 03/13/25 21:00 Acetaminophen 650 mg Q6HP PRN PO 03/13/25 21:00 Nitroglycerin 0.4 mg Q5MINP PRN SL 03/13/25 21:30 Morphine Sulfate 2 mg Q30M PRN IV 03/13/25 21:30 Tamsulosin HCl 0.4 mg QPM PO 03/14/25 18:00 Memantine 5 mg DAILY PO 03/14/25 10:00 03/14/25 10:18 5 MG Examination: GENERAL:Normal, HEENT:Normal, NECK:Normal, LUNGS:Normal, CVS:Normal, ABDOMEN:Normal, MSK:Normal, SKIN:Normal, NEURO:Abnormal (Awake, alert, oriented x2, intermittent confusion), :Abnormal (Positive Fisher catheter) laboratory and microbiology Laboratory Tests 03/14/25 04:36 Test 03/14/25 04:36 Range/Units Serum Glucose 100 74-106 mg/dL Problem List/Assessment/Plan Problem List/Assessment/Plan Palpitations Tachycardia Hypokalemia Acute urinary retention Generalized weakness Status post Fisher insertion Urology consulted . Follow up with the further recommendation IV fluids CT head no acute intracranial hemorrhage Heparin for DVT prophylaxis No GI prophylaxis needed Regular diet Plan discussed with: Patient, Daughter Date of Service: Mar 14, 2025 Billing Provider: GAETANO LEMOS MD Common Visit Codes: [id number] SAME DATE (HIGH) GAETANO LEMOS MD Mar 14, 2025 12:15
[2025-03-14] MEDS: D5W/SOD CHL 0.45% 1,000 ML IV SCH (13:31)
--- NOTE | 2025-03-14 16:25 | DVHINCON2 ---
Date of service: Mar 14, 2025 Referring Physician Hospitalist Reason for Consultation Urinary retention and left nephrolithiasis History of Present Illness Patient has history of BPH and has been taking Flomax therapy for over one year. He recently underwent a colonoscopy with anesthesia and experienced urinary retention requiring catheterization. He was admitted and discharged from [facility] without the Chandler catheter. Patient experienced palpitations and tachycardia and was brought to [facility] by ambulance. Chandler catheter was placed for management of his urinary retention. CT scan also shows a 1 cm left lower pole renal lithiasis. He is having left-sided flank pain 69-year-old male with past medical history of non-Hodgkin's lymphoma, currently on remission; but on treatment every 3 months, dementia, hyperlipidemia, and hypertension who presented to [facility] ED with complaint of palpitations. As reported by daughter, patient was just discharged from [facility] today, but developed confusion state, unable to urinate, getting worse that prompted this visit. Daughter states that patient had Chandler catheter at [facility] to rule out stroke, but was removed because he was urinating on his own before discharge. Patient was seen and evaluated in the ED, laboratory data shows WBC 6.3, platelets 169, sodium 148, potassium 3.1, BUN 9, creatinine 1.01, GFR 82, glucose 147, calcium 9.6, BNP 49.2, troponin 12, D- dimer 0.29, blood pressure 174/99 trending down to 136/96, heart rate 145 trending down to 102, temperature 98.4 F, O2 saturation 93% on oxygen. Head CT showed no acute intracranial abnormality. Please see medication orders section in the computer. On my assessment, daughter at bedside, patient denied chest pain, no headache, dizziness, diaphoresis, shortness of breaths, no diarrhea, nausea, vomiting, fever, no chills. Patient was admitted for further evaluation and medical management. Past Medical History Non-Hodgkin's lymphoma, Dementia, High Lipids, HTN. BPH Family History: Cardiovascular disease G8 MOTHER G8 FATHER Diabetes mellitus G8 MOTHER Allergies: Coded Allergies: NO KNOWN ALLERGIES (Unverified , 05/11/23) Home Meds Active Scripts Pantoprazole Sodium Sesquihydr (Protonix) 40 Mg Tab, 40 MG PO BID, #60 TAB Prov:ANJEL ADAM MD 03/30/23 Sucralfate (Sucralfate) 1 Gm Tab, 1 GM PO BID, #60 TAB Prov:ANJEL ADAM MD 03/30/23 Reported Medications Esomeprazole Magnesium Trihydr (Nexium) 40 Mg Cap, 1 CAP PO DAILY, #30 CAP 5 Refills 03/27/23 Tamsulosin Hcl (Tamsulosin Hcl) 0.4 Mg Cap, 0.4 MG PO HS for 30 Days, MG 03/27/23 Simvastatin (Simvastatin) 20 Mg Tab, 20 MG PO HS for 30 Days 03/27/23 Multiple Vitamin (Multivitamins) Tab, 1 TAB PO DAILY, #90 TAB 3 Refills 03/27/23 Losartan Potassium (Losartan Potassium) 50 Mg Tab, 50 MG PO BID for 30 Days, MG 03/27/23 Hydralazine Hcl (Hydralazine Hcl) 25 Mg Tab, 25 MG PO BID, MG 03/27/23 Ferrous Sulfate (Ferrous Sulfate) 325 Mg Tab, 325 MG PO DAILY, MG 03/27/23 Cholecalciferol (VITAMIN D3) 2,000 Unit Tab, 1 TAB PO DAILY, #30 TAB 5 Refills 03/27/23 Current Medications Current Medications Medications (Trade) Dose Ordered Sig/Lauri Route PRN Reason Start Time Stop Time Status Last Admin Atorvastatin Calcium (Lipitor) 20 mg HS PO 03/13/25 22:00 03/13/25 23:24 Metoprolol Tartrate (Lopressor Tablet) 50 mg BID PO 03/13/25 22:00 03/13/25 23:24 Amlodipine Besylate (Norvasc Tablet) 10 mg DAILY PO 03/14/25 10:00 03/14/25 10:18 Clonidine HCl (Catapres Tablet) 0.1 mg Q4HP PRN PO SBP>150 03/13/25 21:00 03/14/25 01:18 Sodium Chloride (Saline Lock Ns) 10 ml Q8HR IV 03/13/25 22:00 03/14/25 06:15 Acetaminophen/ Hydrocodone Bitart (Sun 5/325MG Tab) 1 tab Q4HP PRN PO MODERATE PAIN (4-6 PAIN SCALE) 03/13/25 21:00 Ondansetron HCl (Zofran) 4 mg Q4HP PRN IV NAUSEA / VOMITING 03/13/25 21:00 Docusate Sodium (Colace Capsule) 100 mg BIDPRN PRN PO FOR CONSTIPATION 03/13/25 21:00 Acetaminophen (Tylenol Tablet) 650 mg Q6HP PRN PO PAIN SCALE 1-3 OR TEMP>100.4 03/13/25 21:00 Nitroglycerin (Ntrostat Sublingual) 0.4 mg Q5MINP PRN SL FOR CHEST PAIN 03/13/25 21:30 Morphine Sulfate 2 mg Q30M PRN IV FOR CHEST PAIN 03/13/25 21:30 Tamsulosin HCl (Flomax) 0.4 mg QPM PO 03/14/25 18:00 Memantine (Namenda Tablet) 5 mg DAILY PO 03/14/25 10:00 03/14/25 10:18 Dextrose/Sodium Chloride 1,000 ml @ 75 mls/hr [id number] IV 03/14/25 12:30 03/14/25 13:31 Review of Systems Constitutional: Yes: Weakness; No: Fever, Chills, Sweats, Malaise, Other Eyes: No: Pain, Vision change, Conjunctivae inflammation, Eyelid inflammation, Other, Redness ENT: No: Ear pain, Ear discharge, Nose pain, Nose discharge, Nose congestion, Mouth pain, Mouth swelling, Throat pain, Throat swelling, Other Respiratory: No: Cough, Dry, Shortness of breath, SOB with excertion, Wheezing, Hemoptysis, Pleuritic Pain, Sputum, Wheezing, Other Cardiovascular: No: Chest Pain, Palpitations, Orthopnea, Paroxysmal Noc. Dyspnea, Edema, Lt Headedness, Other Gastrointestinal: No: Nausea, Vomiting, Abdominal Pain, Diarrhea, Constipation, Melena, Hematochezia, Other Genitourinary: No Dysuria, No Frequency, No Incontinence, No Hematuria; Retention, Other (Chandler catheter) Musculoskeletal: No: other, neck pain, shoulder pain, arm pain, back pain, hand pain, leg pain, foot pain Skin: No: Rash, Lesions, Jaundice, Bruising, Other Neurological: Confusion; No: Weakness, Numbness, Incoordination, Change in speech, Seizures, Other Allergies: Coded Allergies: NO KNOWN ALLERGIES (Unverified , 05/11/23) Medications Current Medications Medications Dose Ordered Sig/Lauri Route Start Time Stop Time Status Last Admin Dose Admin Atorvastatin Calcium 20 mg HS PO 03/13/25 22:00 Metoprolol Tartrate 50 mg BID PO 03/13/25 22:00 Amlodipine Besylate 10 mg DAILY PO 03/14/25 10:00 Clonidine HCl 0.1 mg Q4HP PRN PO 03/13/25 21:00 Sodium Chloride 10 ml Q8HR IV 03/13/25 22:00 Acetaminophen/ Hydrocodone Bitart 1 tab Q4HP PRN PO 03/13/25 21:00 Ondansetron HCl 4 mg Q4HP PRN IV 03/13/25 21:00 Docusate Sodium 100 mg BIDPRN PRN PO 03/13/25 21:00 Acetaminophen 650 mg Q6HP PRN PO 03/13/25 21:00 Vital Signs Vital Signs Date Time Temp Pulse Resp B/P (MAP) Pulse Ox O2 Delivery O2 Flow Rate FiO2 03/14/25 13:00 97.9 68 17 133/81 (98) 95 97.9 03/14/25 08:00 Room Air* 0 21 Physical Exam Vital Signs Date Time Temp Pulse Resp B/P (MAP) Pulse Ox O2 Delivery O2 Flow Rate FiO2 03/13/25 19:55 98.4 144 17 174/99 (124) 93 98.4 03/13/25 19:55 Room Air* 0 21 General Appearance: Alert, Cooperative, No acute distress, Other (Oriented x2) HEENT: Atraumatic, PERRLA, EOMI, Mucous membr. moist/pink Respiratory: Normal air movement Cardiovascular: Regular rate, Normal S1, Normal S2, No murmurs Abdominal: Normal bowel sounds, Soft, No tenderness, No hepatospenomegaly, No masses : chandler in place Extremities: No clubbing, No cyanosis, No edema, Normal pulses, No ten derness/swelling Skin: No rashes, No breakdown, No significant lesion Neuro: Normal speech, Normal tone, Sensation intact, Cranial nerves 3-12 NL, Reflexes 2+, Other (Generalized weakness) Psych/Mental Status: Mental status NL, Mood NL Labs/Diagnostic Data Labs Test 03/14/25 04:36 03/13/25 22:21 03/13/25 20:56 03/13/25 19:55 Range/Units White Blood Count 5.2 4.4-10.8 10^3/uL Red Blood Count 4.53 4.5-5.90 10^6/uL Hemoglobin 13.0 #L 13.5-17.5 g/dL Hematocrit 37.8 #L 41.0-53.0 % Mean Corpuscular Volume 83.5 80.0-100.0 fL Mean Corpuscular Hemoglobin 28.7 28.0-32.0 pg Mean Corpuscular Hemoglobin Concent 34.3 32.0-36.0 g/dL Red Cell Distribution Width 13.2 11.8-14.3 % Platelet Count 148 140-450 10^3/uL Mean Platelet Volume 8.6 6.9-10.8 fL Neutrophils (%) (Auto) 73.1 37.0-80.0 % Lymphocytes (%) (Auto) 15.5 10.0-50.0 % Monocytes (%) (Auto) 7.6 0.0-12.0 % Eosinophils (%) (Auto) 3.1 0.0-7.0 % Basophils (%) (Auto) 0.7 0.0-2.0 % Neutrophils # (Auto) 3.8 1.6-8.6 10 ^3/uL Lymphocytes # (Auto) 0.8 0.4-5.4 10 ^3/uL Monocytes # (Auto) 0.4 0-1.3 10 ^3/uL Eosinophils # (Auto) 0.2 0-0.8 10 ^3/uL Basophils # (Auto) 0 0-0.2 10 ^3/uL Nucleated Red Blood Cells 0.1 % Sodium Level 149 H 136-145 mmol/L Potassium Level 3.7 3.5-5.1 mmol/L Chloride Level 110 H 98-107 mmol/L Carbon Dioxide Level 30 20-31 mmol/L Anion Gap 9 5-15 Blood Urea Nitrogen 11 9-23 mg/dL Creatinine 0.89 0.700-1.30 mg/dL Glomerular Filtration Rate Calc 94 >90 mL/min BUN/Creatinine Ratio 12.4 10.0-20.0 Serum Glucose 100 74-106 mg/dL Calcium Level 8.9 8.7-10.4 mg/dL Total Bilirubin 0.6 0.2-1.0 mg/dL Aspartate Amino Transferase (AST) 15 13-40 U/L Alanine Aminotransferase (ALT) < 9 7-40 U/L Alkaline Phosphatase 92 46-116 U/L Total Protein 5.6 L 5.7-8.2 g/dL Albumin 3.7 3.2-4.8 g/dL Urine Color Colorless Yellow Urine Clarity Clear Clear Urine pH 7.0 5.0-9.0 Urine Specific [place] 1.005 1.001-1.035 Urine Protein Negative Negative Urine Ketones Negative Negative Urine Blood 2+ H Negative /uL Urine Nitrite Negative Negative Urine Bilirubin Negative Negative Urine Urobilinogen Normal Negative mg/dL Urine Leukocyte Esterase Negative Negative /uL Urine RBC 9 0 - 3 /hpf Urine Microscopic WBC < 1 0-3 /HPF Urine Squamous Epithelial Cells None seen <5 /hpf Urine Bacteria None seen None Seen /hpf Urine Glucose Normal Normal mg/dL Troponin I High Sensitivity 36 </=54 ng/L D-Dimer, Quantitative 0.29 0.0-0.49 mg/L FEU Hemoglobin A1c 4.8 <5.7 % A1C Lactic Acid Level 1.3 0.4-2.0 mmol/L Magnesium Level 2.0 1.6-2.6 mg/dL B-Type Natriuretic Peptide 49.20 0-100 pg/mL Microbiology Date/Time Source Procedure Growth Status 03/14/25 00:50 Nose MRSA Screen - Final Complete PATIENT: TERRY ZAVALA ACCT: [id number] UNIT: [id number] : 1955 LOC: OVERFLOW ROOM / BED: [address] [place] [address] AGE / SEX: 69 / M ADM STATUS: ADM IN SERVICE 16 ORDERING PHYSICIAN: YAMILKA THOMPSON DO PROCEDURE(s): ABPL - CT AB PEL WO CON-NO ORAL OR IV REASON: weak, unclear presentation ORDER NUMBER(s): [id number], ACCESSION NUMBER(s): [id number] CLINICAL HISTORY: weak, unclear presentation TECHNIQUE: CT of the abdomen and pelvis was performed without intravenous contrast. This exam was performed according to our departmental dose optimization program. Up-to-date CT equipment and radiation dose reduction techniques are utilized as appropriate. CTDI: 20.67 DLP: 1454.87 WID: COMPARISON: CT CT AB PEL WO CON-NO ORAL OR IV on DOS: 03/25/23 the report FINDINGS: Lower Thorax: Linear bibasilar scarring or atelectasis. 5 mm right middle lobe pulmonary nodule series 4, image 17. Normal-sized heart with small pericardial fluid. Coronary artery calcifications Up to moderate in the left anterior descending coronary artery. Mild aortic valve calcification. Liver and Biliary system: Unremarkable. Spleen: Mild splenomegaly. Adrenal Glands and Kidneys: Normal adrenal glands. Very mild hydro ureteronephrosis without obstructing calculus. There are nonobstructing left renal calculi largest in the left lower pole measuring 1.2 cm on series 5, image 114. Hypodense an intermediate density left renal lesions not optimally evaluated without contrast. Mild perinephric soft tissue stranding. Pancreas and Retroperitoneum: Grossly normal pancreas. Mildly prominent retroperitoneal lymph nodes. Aorta and Major Vessels: Mildly ectatic aortoiliac vessels. Mild calcified plaque in the aortoiliac vessels. Bowel, Mesentery and Peritoneal space: Normal caliber small and large bowel. Normal appendix. No free air or fluid collection. Mild colonic diverticulosis. Pelvis: Moderate distention of the urinary bladder with mild perivesical stranding. There is prostatomegaly with dystrophic calcifications. No pelvic lymphadenopathy. Soft tissue plaque at the origin and of the right inguinal canal. Small fat containing left inguinal hernia. Abdominal wall and Osseous Structures: Tiny sclerotic foci in the proximal f emurs and pelvis likely bone islands. Grade 1 anterolisthesis at L5-S1 with bilateral L5 spondylolysis. Multilevel lower thoracic and lumbar spondylosis. No destructive osseous lesion. IMPRESSION: 1. Moderate distention of the urinary bladder with mild perivesical stranding which could reflect cystitis. Correlate with urinalysis. That could be a component of bladder outlet obstruction given prostatomegaly. 2. Very mild bilateral hydroureteronephrosis without obstructing calculus. This could be related to reflux versus urinary tract infection. This could also be evaluated by urinalysis. 3. Calcified coronary artery disease up to moderate in the left anterior descending coronary artery. 4. Mild splenomegaly. 5. Nonobstructing left renal calculi. ATED BY: SHIMON HERNANDEZ MD DICTATED DATE/TIME: 03/13/252256 SIGNED BY: SHIMON HERNANDEZ MD SIGNED DATE/TIME: 03/13/252256 CC: Assessment Left nephrolithiasis, 1 cm BPH Urinary retention Plan/Recommendation Keep Chandler to gravity drainage and leg bag for discharge Outpatient lithotripsy of the left kidney stone and diagnostic cystoscopy to be arranged PSA level Plan discussed with: Patient, Daughter VIVIANE LEMOS MD Mar 14, 2025 16:25
[2025-03-14] MEDS: TAMSULOSIN HYDROCHLORIDE 0.4 MG CAP PO SCH (17:59)
[2025-03-15] VITALS (8 sets, daily range): BP systolic 125–138; BP diastolic 71–93; PULSE 52–70; RESP 17–19; TEMP 98.1–99.1; O2SAT 93–96
[2025-03-15 07:04] LABS: Hematocrit 36.9 % (41.0-53.0); Hemoglobin 12.8 g/dL (13.5-17.5); Mean Corpuscular Hemoglobin 28.6 pg (28.0-32.0); Mean Corpuscular Volume 82.5 fL (80.0-100.0); Nucleated Red Blood Cells % 0.1 %
[2025-03-15 07:13] LABS: Sodium 144 mmol/L (136-145)
[2025-03-15 07:14] LABS: Anion Gap 8 (5-15); Carbon Dioxide 28 mmol/L (20-31)
[2025-03-15 07:20] LABS: BUN/Creatinine Ratio 22.7 (10.0-20.0); Blood Urea Nitrogen 15 mg/dL (9-23); Glucose 104 mg/dL (74-106)
[2025-03-15 07:22] LABS: Calcium 8.5 mg/dL (8.7-10.4); Chloride 108 mmol/L (98-107); Potassium 3.4 mmol/L (3.5-5.1)
[2025-03-15 08:07] LABS: Prostate Specific Antigen 1.8 ng/mL (0.0-4.0)
[2025-03-15] MEDS: POTASSIUM CHLORIDE 8 MEQ TAB PO ONE (13:15)
[2025-03-15] MEDS ORDERED: CIPROFLOXACIN HCL 500 MG TAB PO ONE (13:15)
--- NOTE | 2025-03-15 13:23 | DVHPN2 ---
Subjective rested/ in the same room and had lot of questions Changes from previous H/P or p: No Changes Eyes: No Pain, No Vision change, No Conjunctivae inflammation, No Eyelid inflammation, No Other, No Redness ENT: No Ear pain, No Ear discharge, No Nose pain, No Nose discharge, No Nose congestion, No Mouth pain, No Mouth swelling, No Throat pain, No Throat swelling, No Other Cardiovascular: No Chest Pain, No Palpitations, No Orthopnea, No Paroxysmal Noc. Dyspnea, No Edema, No Lt Headedness, No Other Respiratory: No Cough, No Dry, No Shortness of breath, No SOB with excertion, No Wheezing, No Hemoptysis, No Pleuritic Pain, No Sputum, No Other Gastrointestinal: No Nausea, No Vomiting, No Abdominal Pain, No Diarrhea, No Constipation, No Melena, No Hematochezia, No Other Genitourinary: No Dysuria, No Frequency, No Incontinence, No Hematuria; R etention, Other (Chandler catheter) Musculoskeletal: No other, No neck pain, No shoulder pain, No arm pain, No back pain, No hand pain, No leg pain, No foot pain Skin: No Rash, No Lesions, No Jaundice, No Bruising, No Other Objective Vitals Vital Signs Date Time Temp Pulse Resp B/P (MAP) Pulse Ox O2 Delivery O2 Flow Rate FiO2 03/15/25 13:03 99.1 52 18 136/87 (103) 96 99.1 03/15/25 07:30 Room Air* 0 21 Intake/Output Intake and Output 03/15/25 07:00 Intake Total 395 ml Output Total 950 ml Balance -555 ml Intake Oral 395 ml Output Urine Total 950 ml General Appearance: Alert, Oriented X3, Cooperative, No acute distress, Other (legally blind ) Lungs: Clear to auscultation, Normal air movement Cardiovascular: Regular rate, Normal S1, Normal S2 Abdomen: Normal bowel sounds, Soft, No tenderness, No hepatospenomegaly Neuro: Normal speech, Strength at 5/5 X4 ext, Normal tone, Sensation intact, C ranial nerves 3-12 NL Medications Current Medications Medications Dose Ordered Sig/Lauri Route Start Time Stop Time Status Last Admin Dose Admin Atorvastatin Calcium 20 mg HS PO 03/13/25 22:00 03/14/25 22:28 20 MG Metoprolol Tartrate 50 mg BID PO 03/13/25 22:00 03/15/25 10:14 50 MG Amlodipine Besylate 10 mg DAILY PO 03/14/25 10:00 03/15/25 10:13 10 MG Clonidine HCl 0.1 mg Q4HP PRN PO 03/13/25 21:00 03/14/25 01:18 0.1 MG Sodium Chloride 10 ml Q8HR IV 03/13/25 22:00 03/15/25 05:33 10 ML Acetaminophen/ Hydrocodone Bitart 1 tab Q4HP PRN PO 03/13/25 21:00 Docusate Sodium 100 mg BIDPRN PRN PO 03/13/25 21:00 Acetaminophen 650 mg Q6HP PRN PO 03/13/25 21:00 Tamsulosin HCl 0.4 mg QPM PO 03/14/25 18:00 03/14/25 17:59 0.4 MG Memantine 5 mg DAILY PO 03/14/25 10:00 03/15/25 10:13 5 MG Laboratory Results Laboratory Tests 03/15/25 06:31 Chemistry Test 03/15/25 06:31 Calcium Level 8.5 mg/dL (8.7-10.4) L Urinalysis Test 03/13/25 22:21 Urine Color Colorless (Yellow) Urine Clarity Clear (Clear) Urine pH 7.0 (5.0-9.0) Urine Specific [place] 1.005 (1.001-1.035) Urine Protein Negative (Negative) Urine Ketones Negative (Negative) Urine Blood 2+ /uL (Negative) H Urine Nitrite Negative (Negative) Urine Bilirubin Negative (Negative) Urine Urobilinogen Normal mg/dL (Negative) Urine Leukocyte Esterase Negative /uL (Negative) Urine RBC 9 /hpf (0 - 3) Urine Microscopic WBC < 1 /HPF (0-3) Urine Squamous Epithelial Cells None seen /hpf (<5) Urine Bacteria None seen /hpf (None Seen) Urine Glucose Normal mg/dL (Normal) Microbiology Microbiology Date/Time Source Procedure Growth Status 03/14/25 00:50 Nose MRSA Screen - Final Complete Labs and/or images reviewed: Labs reviewed by me, Image(s) reviewed by me Assessment/Plan Assessment/Plan palpiations- hr stable now/all ekg sinus- echo/cardiology opinion/ ? from renal colic pain and urine retention on admission renal colic- plan is for cystoscopy and litho as op obstructive uropathy/urine retention- has chandler/add cipro old lacunar infarcts dementia legally blind ambulates at baseline- pt consult Plan discussed with: Patient, Spouse, Other My Orders Orders - ADORE VEGA MD Procedure Category Date Status Time Echo 2d Mode Cardiac US 03/15/25 Logged DOP 12:49 * Cardiology Consult CONS 03/15/25 Transmitted 12:49 Potassium Er Tablet PHA 03/15/25 Logged (Klor-Con Tablet) 13:15 Date of Service: Mar 15, 2025 Billing Provider: ADORE VEGA MD Common Visit Codes: [id number] INP/OBS CARE(MOD) ADORE VEGA MD Mar 15, 2025 13:23
--- NOTE | 2025-03-15 13:32 | DVHPN2 ---
Progress Note - Dictate Date Seen: Mar 15, 2025 Medical Necessity Reason Pt with a Central, PICC or Fol: No Subjective PT WITH OBSTRUCTIVE UROPATHY NOW WITH PALPITATION ECG NEGATIVE TROPONIN NEGATIVE ECHO NL EF 2022 PMH NON HODGKIN LYMPHOMA HX OF SBO HIATAL HERNIA GASTRITIS HX OF ASCITES HTN KIDNEY STONES UROPATHY HYPOKALEMIA vital signs Vital Sign Date Time Temp Pulse Resp B/P (MAP) Pulse Ox O2 Delivery O2 Flow Rate FiO2 03/15/25 13:03 99.1 52 18 136/87 (103) 96 99.1 03/15/25 07:30 Room Air* 0 21 Total Intake and Output 03/14/25 03/14/25 03/15/25 15:00 23:00 07:00 Intake Total 175 ml 220 ml Output Total 300 ml 650 ml Balance -125 ml -430 ml medications Current Medications Medications Dose Ordered Sig/Lauri Route Start Time Stop Time Status Last Admin Dose Admin Atorvastatin Calcium 20 mg HS PO 03/13/25 22:00 03/14/25 22:28 20 MG Metoprolol Tartrate 50 mg BID PO 03/13/25 22:00 03/15/25 10:14 50 MG Amlodipine Besylate 10 mg DAILY PO 03/14/25 10:00 03/15/25 10:13 10 MG Clonidine HCl 0.1 mg Q4HP PRN PO 03/13/25 21:00 03/14/25 01:18 0.1 MG Sodium Chloride 10 ml Q8HR IV 03/13/25 22:00 03/15/25 05:33 10 ML Acetaminophen/ Hydrocodone Bitart 1 tab Q4HP PRN PO 03/13/25 21:00 Docusate Sodium 100 mg BIDPRN PRN PO 03/13/25 21:00 Acetaminophen 650 mg Q6HP PRN PO 03/13/25 21:00 Tamsulosin HCl 0.4 mg QPM PO 03/14/25 18:00 03/14/25 17:59 0.4 MG Memantine 5 mg DAILY PO 03/14/25 10:00 03/15/25 10:13 5 MG Ciprofloxacin 500 mg Q12HR PO 03/15/25 22:00 UNV Ciprofloxacin 500 mg Q12HR PO 03/15/25 22:00 UNV laboratory and microbiology Laboratory Tests 03/15/25 06:31 Test 11/8/25 06:31 Range/Units Serum Glucose 104 74-106 mg/dL Problem List OBSTRUCTIVE UROPATHY NOW WITH PALPITATION ECG NEGATIVE TROPONIN NEGATIVE ECHO NL EF 2022 PMH NON HODGKIN LYMPHOMA HX OF SBO HIATAL HERNIA GASTRITIS HX OF ASCITES HTN KIDNEY STONES UROPATHY HYPOKALEMIA Assessment/Plan CORRECT HYPOKALEMIA CONT TELE MONITOR Plan discussed with: Patient HUE FINNEY MD Mar 15, 2025 13:32
[2025-03-15] MEDS: POTASSIUM EFFERVESENT TAB 25 MEQ PO ONE (14:15)
[2025-03-15 14:24] LABS: Triglycerides 117.0 mg/dL (< 150)
[2025-03-15 14:25] LABS: Magnesium 1.9 mg/dL (1.6-2.6)
[2025-03-15 14:26] LABS: Cholesterol 120.0 mg/dL (< 200)
[2025-03-15 14:27] LABS: HDL Cholesterol 29.0 mg/dL (40-59)
--- NOTE | 2025-03-15 15:09 | DVHCONRES ---
Date Seen: Mar 15, 2025 Resident Creating Document: NINI BARNARD RESIDENT Referring Physician DR VEGA History of Present Illness 69-year-old presented to the ER with a chief complaint of inability to urinate and abdominal pain. Patient underwent colonoscopy on March 10, and has been experiencing abdominal pain and difficulty urination. He does have history of BPH and kidney stones. Patient became disoriented and was confused and therefore family decided to bring the patient into the ER. In the ER, Fisher catheter was placed which relieved his obstruction. Patient denies chest pain, dizziness, shortness of breaths on my evaluation. EKG was completed on arrival which showed tachycardia, heart rate 144, with absent P waves but regular RR interval Patient reports that he has had a stress test 5 years back which was normal, left heart angiogram 10 years back which was unremarkable. He does report that he has a enlarged heart. Patient was diagnosed with a obstructive uropathy with 1 cm kidney stone Cardiology consulted for palpitations, clearance for lithotripsy. Per urology note, patient will be requiring Outpatient lithotripsy of the left kidney stone and diagnostic cystoscopy to be arranged Past medical history: Hypertension, Non-Hodgkin lymphoma on chemotherapy, now in remission, hiatal hernia, gastritis, multiple kidney stones-last time 2 years back, obstructive uropathy Home medication: Tamsulosin, hydralazine as needed, losartan 50 mg Director [facility]: Dr. Mary Patient seen and examined in room 247 B, telemetry reviewed, shows episodes of s inus bradycardia with a heart rate going as low as 49 bpm. Family History: Cardiovascular disease G8 MOTHER G8 FATHER Diabetes mellitus G8 MOTHER Allergies: Coded Allergies: NO KNOWN ALLERGIES (Unverified , 05/11/23) Home Meds Active Scripts Pantoprazole Sodium Sesquihydr (Protonix) 40 Mg Tab, 40 MG PO BID, #60 TAB Prov:ANJEL ADAM MD 03/30/23 Sucralfate (Sucralfate) 1 Gm Tab, 1 GM PO BID, #60 TAB Prov:ANJEL ADAM MD 03/30/23 Reported Medications Esomeprazole Magnesium Trihydr (Nexium) 40 Mg Cap, 1 CAP PO DAILY, #30 CAP 5 Refills 03/27/23 Tamsulosin Hcl (Tamsulosin Hcl) 0.4 Mg Cap, 0.4 MG PO HS for 30 Days, MG 03/27/23 Simvastatin (Simvastatin) 20 Mg Tab, 20 MG PO HS for 30 Days 03/27/23 Multiple Vitamin (Multivitamins) Tab, 1 TAB PO DAILY, #90 TAB 3 Refills 03/27/23 Losartan Potassium (Losartan Potassium) 50 Mg Tab, 50 MG PO BID for 30 Days, MG 03/27/23 Hydralazine Hcl (Hydralazine Hcl) 25 Mg Tab, 25 MG PO BID, MG 03/27/23 Ferrous Sulfate (Ferrous Sulfate) 325 Mg Tab, 325 MG PO DAILY, MG 03/27/23 Cholecalciferol (VITAMIN D3) 2,000 Unit Tab, 1 TAB PO DAILY, #30 TAB 5 Refills 03/27/23 Current Medications Current Medications Medications (Trade) Dose Ordered Sig/Lauri Route PRN Reason Start Time Stop Time Status Last Admin Tamsulosin HCl (Flomax) 0.4 mg QPM PO 03/14/25 18:00 03/14/25 17:59 Ciprofloxacin (Cipro Tablet) 500 mg Q12HR PO 03/15/25 22:00 UNV Ciprofloxacin (Cipro Tablet) 500 mg Q12HR PO 03/15/25 22:00 UNV Review of Systems Eyes: No Pain, No Vision change, No Conjunctivae inflammation, No Eyelid inflammation, No Other, No Redness ENT: No Ear pain, No Ear discharge, No Nose pain, No Nose discharge, No Nose congestion, No Mouth pain, No Mouth swelling, No Throat pain, No Throat swelling, No Other Cardiovascular: No Chest Pain, No Palpitations, No Orthopnea, No PND, No Edema, No Lt Headedness, No Other Respiratory: No Cough, No Dry, No Shortness of breath, No SOB with exertion, No Wheezing, No Hemoptysis, No Pleuritic Pain, No Sputum, No Other Gastrointestinal: No Nausea, No Vomiting, reports Abdominal Pain, No Diarrhea, No Constipation, No Melena, No Hematochezia, No Other Genitourinary: Inability to urinate No Dysuria, No Frequency, No Incontinence, No Hematuria, No Retention, No Other Musculoskeletal: No other, No neck pain, No shoulder pain, No arm pain, No back pain, No hand pain, No leg pain, No foot pain Skin: No Rash, No Lesions, No Jaundice, No Bruising, No Other Vital Signs Vital Signs Date Time Temp Pulse Resp B/P (MAP) Pulse Ox O2 Delivery O2 Flow Rate FiO2 03/15/25 13:03 99.1 52 18 136/87 (103) 96 99.1 03/15/25 07:30 Room Air* 0 21 Physical Exam Obese male patient lying in the bed comfortably, no acute distress General: Obese, afebrile, palor, mucosae are moist Cardiovascular: Regular S1 and S2. No murmurs, gallops or rubs. No JVD elevation. Minimal nonpitting edema Respiratory: Normal B/L air entry on room air. Clear lung sounds on auscultation Abdomen: Soft, nontender, nondistended, normoactive bowel sounds, no rebound tenderness, no organomegaly, no masses Genitourinary: Deferred MSK/skin: Mobilizes 4 limbs. Skin is dry and warm Neurological: No motor, no sensitive deficits, normal speech. Pupils are isocoric and reactive. Psych/Mental Status: A/Ox3 Labs/Diagnostic Data Labs Test 03/15/25 06:31 03/14/25 04:36 03/13/25 22:21 03/13/25 20:56 Range/Units White Blood Count 4.7 4.4-10.8 10^3/uL Red Blood Count 4.47 L 4.5-5.90 10^6/uL Hemoglobin 12.8 L 13.5-17.5 g/dL Hematocrit 36.9 L 41.0-53.0 % Mean Corpuscular Volume 82.5 80.0-100.0 fL Mean Corpuscular Hemoglobin 28.6 28.0-32.0 pg Mean Corpuscular Hemoglobin Concent 34.7 32.0-36.0 g/dL Red Cell Distribution Width 13.2 11.8-14.3 % Platelet Count 149 140-450 10^3/uL Mean Platelet Volume 8.1 6.9-10.8 fL Neutrophils (%) (Auto) 69.4 37.0-80.0 % Lymphocytes (%) (Auto) 18.7 10.0-50.0 % Monocytes (%) (Auto) 6.2 0.0-12.0 % Eosinophils (%) (Auto) 4.9 0.0-7.0 % Basophils (%) (Auto) 0.8 0.0-2.0 % Neutrophils # (Auto) 3.2 1.6-8.6 10 ^3/uL Lymphocytes # (Auto) 0.9 0.4-5.4 10 ^3/uL Monocytes # (Auto) 0.3 0-1.3 10 ^3/uL Eosinophils # (Auto) 0.2 0-0.8 10 ^3/uL Basophils # (Auto) 0 0-0.2 10 ^3/uL Nucleated Red Blood Cells 0.1 % Sodium Level 144 # 136-145 mmol/L Potassium Level 3.4 L 3.5-5.1 mmol/L Chloride Level 108 H 98-107 mmol/L Carbon Dioxide Level 28 20-31 mmol/L Anion Gap 8 5-15 Blood Urea Nitrogen 15 9-23 mg/dL Creatinine 0.66 L 0.700-1.30 mg/dL Glomerular Filtration Rate Calc 103 >90 mL/min BUN/Creatinine Ratio 22.7 H 10.0-20.0 Serum Glucose 104 74-106 mg/dL Calcium Level 8.5 L 8.7-10.4 mg/dL Magnesium Level 1.9 1.6-2.6 mg/dL Triglycerides Level 117 < 150 mg/dL Cholesterol Level 120 < 200 mg/dL LDL Cholesterol 71 < 100 mg/dL HDL Cholesterol 29 L 40-59 mg/dL Thyroid Stimulating Hormone (TSH) 1.74 0.55-4.78 uIU/mL Total Bilirubin 0.6 0.2-1.0 mg/dL Aspartate Amino Transferase (AST) 15 13-40 U/L Alanine Aminotransferase (ALT) < 9 7-40 U/L Alkaline Phosphatase 92 46-116 U/L Total Protein 5.6 L 5.7-8.2 g/dL Albumin 3.7 3.2-4.8 g/dL Free Prostate Specific Antigen 0.70 N/A ng/mL Percent Free Prostate Specific Ag 38.9 . % Prostate Specific Antigen Total 1.8 0.0-4.0 ng/mL Urine Color Colorless Yellow Urine Clarity Clear Clear Urine pH 7.0 5.0-9.0 Urine Specific [place] 1.005 1.001-1.035 Urine Protein Negative Negative Urine Ketones Negative Negative Urine Blood 2+ H Negative /uL Urine Nitrite Negative Negative Urine Bilirubin Negative Negative Urine Urobilinogen Normal Negative mg/dL Urine Leukocyte Esterase Negative Negative /uL Urine RBC 9 0 - 3 /hpf Urine Microscopic WBC < 1 0-3 /HPF Urine Squamous Epithelial Cells None seen <5 /hpf Urine Bacteria None seen None Seen /hpf Urine Glucose Normal Normal mg/dL Troponin I High Sensitivity 36 </=54 ng/L Test 03/13/25 19:55 Range/Units D-Dimer, Quantitative 0.29 0.0-0.49 mg/L FEU Hemoglobin A1c 4.8 <5.7 % A1C Lactic Acid Level 1.3 0.4-2.0 mmol/L B-Type Natriuretic Peptide 49.20 0-100 pg/mL Microbiology Date/Time Source Procedure Growth Status 03/14/25 00:50 Nose MRSA Screen - Final Complete Assessment SVT likely in the setting of obstructive uropathy hypertension Acute urinary retention Nonobstructing left renal calculi Likely bladder outlet obstruction and benign prostatic hyperplasia Mild bilateral hydronephrosis Obesity EKG was completed on arrival which showed tachycardia, heart rate 144, with absent P waves but regular RR interval. Troponin 12, 16, [address] abdomen shows Moderate distention of the urinary bladder with mild perivesical stranding which could reflect cystitis. Correlate with urinalysis. That could be a component of bladder outlet obstruction given prostatomegaly. Calcified coronary artery disease up to moderate in the left anterior descending coronary artery. Mild splenomegaly. Nonobstructing left renal calculi. Plan/Recommendation Given the clinical picture, SVT was likely in the setting of acute urinary retention. Patient is currently sinus bradycardic, as low as 49 beats per minute. Per , this is something chronic and he follows Dr. Mary as outpatient. Repeat EKG ordered. Follow up with the echocardiogram. Discontinue beta jelani given bradycardia Orthostatic vitals pending Replenish electrolytes, maintain K greater than 4, Mag greater than 2 Strict I&Os Rest of management per primary team Thank you for consulting Cardiology Plan discussed with patient, patient's in which all questions have been answered Case discussed with Dr. Vaca Plan discussed with: Patient Visit Coding Cardiology RES Date of Service: Mar 15, 2025 Billing Provider: NINI BARNARD Cardiology Common Codes: CONSULT ONLY NINI BARNARD Mar 15, 2025 15:09
[2025-03-15 15:28] LABS: Potassium 4.0 mmol/L (3.5-5.1)
[2025-03-15 15:29] LABS: Anion Gap 5 (5-15); Carbon Dioxide 29 mmol/L (20-31)
[2025-03-15 15:30] LABS: Calcium 8.9 mg/dL (8.7-10.4)
[2025-03-15 15:34] LABS: BUN/Creatinine Ratio 13.3 (10.0-20.0); Blood Urea Nitrogen 10 mg/dL (9-23); Glucose 96 mg/dL (74-106)
[2025-03-15 15:36] LABS: Chloride 111 mmol/L (98-107); Sodium 145 mmol/L (136-145)
[2025-03-15] MEDS: CIPROFLOXACIN HCL 500 MG TAB PO ONE (19:45)
[2025-03-15] MEDS ORDERED: CIPROFLOXACIN HCL 500 MG TAB PO SCH (22:00)
[2025-03-15] MEDS: CIPROFLOXACIN HCL 500 MG TAB PO SCH (22:10)
[2025-03-16] VITALS (8 sets, daily range): BP systolic 130–144; BP diastolic 81–89; PULSE 54–80; RESP 16–17; TEMP 97.7–98.3; O2SAT 93–96
[2025-03-16 07:16] LABS: Hematocrit 37.0 % (41.0-53.0); Hemoglobin 13.1 g/dL (13.5-17.5); Mean Corpuscular Hemoglobin 28.9 pg (28.0-32.0); Mean Corpuscular Volume 81.8 fL (80.0-100.0); Nucleated Red Blood Cells % 0.1 %
[2025-03-16 08:20] LABS: Carbon Dioxide 27 mmol/L (20-31)
[2025-03-16 08:25] LABS: BUN/Creatinine Ratio 14.9 (10.0-20.0); Blood Urea Nitrogen 11 mg/dL (9-23); Calcium 8.4 mg/dL (8.7-10.4); Glucose 93 mg/dL (74-106)
[2025-03-16 08:46] LABS: Anion Gap 10 (5-15); Chloride 109 mmol/L (98-107); Potassium 3.3 mmol/L (3.5-5.1); Sodium 146 mmol/L (136-145)
--- NOTE | 2025-03-16 10:24 | DVHPN2 ---
Subjective rested/waiting on cardiac clerance/ Changes from previous H/P or p: No Changes Eyes: No Pain, No Vision change, No Conjunctivae inflammation, No Eyelid inflammation, No Other, No Redness ENT: No Ear pain, No Ear discharge, No Nose pain, No Nose discharge, No Nose congestion, No Mouth pain, No Mouth swelling, No Throat pain, No Throat swelling, No Other Cardiovascular: No Chest Pain, No Palpitations, No Orthopnea, No Paroxysmal Noc. Dyspnea, No Edema, No Lt Headedness, No Other Respiratory: No Cough, No Dry, No Shortness of breath, No SOB with excertion, No Wheezing, No Hemoptysis, No Pleuritic Pain, No Sputum, No Other Gastrointestinal: No Nausea, No Vomiting, No Abdominal Pain, No Diarrhea, No Constipation, No Melena, No Hematochezia, No Other Genitourinary: No Dysuria, No Frequency, No Incontinence, No Hematuria; R etention, Other (Chandler catheter) Musculoskeletal: No other, No neck pain, No shoulder pain, No arm pain, No back pain, No hand pain, No leg pain, No foot pain Skin: No Rash, No Lesions, No Jaundice, No Bruising, No Other Objective Vitals Vital Signs Date Time Temp Pulse Resp B/P (MAP) Pulse Ox O2 Delivery O2 Flow Rate FiO2 03/16/25 09:00 98.3 57 17 133/81 (98) 94 98.3 03/16/25 07:30 Room Air* 0 21 Intake/Output Intake and Output 03/16/25 07:00 Intake Total 2100 ml Output Total 4350 ml Balance -2250 ml Intake Oral 1800 ml IV Total 300 ml Output Urine Total 4350 ml General Appearance: Alert, Oriented X3, Cooperative, No acute distress, Other (legally blind ) Lungs: Clear to auscultation, Normal air movement Cardiovascular: Regular rate, Normal S1, Normal S2 Abdomen: Normal bowel sounds, Soft, No tenderness, No hepatospenomegaly Neuro: Normal speech, Strength at 5/5 X4 ext, Normal tone, Sensation intact, C ranial nerves 3-12 NL Medications Current Medications Medications Dose Ordered Sig/Lauri Route Start Time Stop Time Status Last Admin Dose Admin Atorvastatin Calcium 20 mg HS PO 03/13/25 22:00 03/15/25 22:10 20 MG Amlodipine Besylate 10 mg DAILY PO 03/14/25 10:00 03/16/25 08:41 10 MG Clonidine HCl 0.1 mg Q4HP PRN PO 03/13/25 21:00 03/14/25 01:18 0.1 MG Sodium Chloride 10 ml Q8HR IV 03/13/25 22:00 03/16/25 06:03 10 ML Acetaminophen/ Hydrocodone Bitart 1 tab Q4HP PRN PO 03/13/25 21:00 Docusate Sodium 100 mg BIDPRN PRN PO 03/13/25 21:00 Acetaminophen 650 mg Q6HP PRN PO 03/13/25 21:00 Tamsulosin HCl 0.4 mg QPM PO 03/14/25 18:00 03/15/25 19:45 0.4 MG Memantine 5 mg DAILY PO 03/14/25 10:00 03/16/25 08:34 5 MG Ciprofloxacin 500 mg Q12HR PO 03/15/25 22:00 03/16/25 08:34 500 MG Laboratory Results Laboratory Tests 03/16/25 06:31 Chemistry Test 03/15/25 14:51 03/16/25 06:31 Calcium Level 8.9 mg/dL (8.7-10.4) 8.4 mg/dL (8.7-10.4) L Magnesium Level 2.0 mg/dL (1.6-2.6) Urinalysis Test 03/13/25 22:21 Urine Color Colorless (Yellow) Urine Clarity Clear (Clear) Urine pH 7.0 (5.0-9.0) Urine Specific [place] 1.005 (1.001-1.035) Urine Protein Negative (Negative) Urine Ketones Negative (Negative) Urine Blood 2+ /uL (Negative) H Urine Nitrite Negative (Negative) Urine Bilirubin Negative (Negative) Urine Urobilinogen Normal mg/dL (Negative) Urine Leukocyte Esterase Negative /uL (Negative) Urine RBC 9 /hpf (0 - 3) Urine Microscopic WBC < 1 /HPF (0-3) Urine Squamous Epithelial Cells None seen /hpf (<5) Urine Bacteria None seen /hpf (None Seen) Urine Glucose Normal mg/dL (Normal) Microbiology Microbiology Date/Time Source Procedure Growth Status 03/14/25 00:50 Nose MRSA Screen - Final Complete Labs and/or images reviewed: Labs reviewed by me, Image(s) reviewed by me Assessment/Plan Assessment/Plan palpitations- hr stable now/all ekg sinus- echo/cardiology opinion/ ? from renal colic pain and urine retention on admission renal colic- plan is for cystoscopy and litho as op/pain free now after chandler placed obstructive uropathy/urine retention- has chandler/add cipro old lacunar infarcts dementia legally blind ambulates at baseline- pt consult dc home once cleared by cardiology Plan discussed with: Patient, Other My Orders Orders - ADORE VEGA MD Procedure Category Date Status Time * Cardiology Consult CONS 03/15/25 Transmitted 12:49 Ciprofloxacin Tablet PHA 03/15/25 In Process (Cipro Tablet) 22:00 Refer To Physical JAMES 03/15/25 In Process Therapy 13:23 Sequential JAMES 03/15/25 In Process Compression Device 13:23 Free T4 (Free LAB 03/15/25 In Process Thyroxine) 13:25 * [employer] CONS 03/16/25 Transmitted Consult Date of Service: Mar 16, 2025 Billing Provider: ADORE VEGA MD Common Visit Codes: [id number] INP/OBS CARE(MOD) ADORE VEGA MD Mar 16, 2025 10:24
--- NOTE | 2025-03-16 10:39 | DVHSR ---
APPROVED REPORT EXAM: Two-dimensional and M-mode echocardiogram with Doppler and color Doppler. Blood Pressure: 136/87 mmHg INDICATION Palpitations RISK FACTORS Obesity: Height: 5'9", Weight: 242 DIMENSIONS LVDd 4.8 (3.8-5.7cm) LA (2D) 4.5 (1.9-4.0cm) Aortic Root 4.2 (2.0-3.7cm) LVDs 3.6 (2.5-4.0cm) LA (MM) (1.9-4.0cm) Aortic Cusp Exc 1.7 (1.5-2.0cm) EF (%) 55.0 (55-70%) Rt. Atrium 4.4 (1.9-4.0cm) Asc. Aorta cm IVSd 1.2 (0.7-1.1cm) RV (D) (1.8-2.4cm) PWd 1.1 (0.7-1.1cm) Mitral Valve Mitral Mitral Stenosis E wave 0.63m/s MV Mean GR. mmHg A wave 0.86m/s MV Peak GR. mmHg E/A ratio 0.7 2D MVA cm2 DECEL Time 253ms PRESS 1/2 Time ms Aortic Valve Aortic Valve Aortic Stenosis V1 0.94m/s AO Mean GR. 7mmHg V2 1.84m/s AO Peak GR. 14mmHg LVOT Diameter 2.3 (1.8-2.4cm) Doppler ARLETH 2.12cm2 Tricuspid Valve TR Velocity 2.03m/s RVSP 24mmHg Other Information Technically limited study due to body habitus. Conclusion EF 50-55% LAE AARON MILD TO MOD AI AORTIC ROOT DILATATION
[2025-03-16] MEDS: POTASSIUM CHL 20 Meq TABLET PO ONE ×3 (11:30→15:59)
--- NOTE | 2025-03-16 12:42 | DVHPN2 ---
Progress Note - Dictate Date Seen: Mar 16, 2025 Medical Necessity Reason Pt with a Central, PICC or Fol: No Subjective PT WITH OBSTRUCTIVE UROPATHY NOW WITH PALPITATION ECG NEGATIVE TROPONIN NEGATIVE ECHO NL EF 2022 [facility] NON [place] LYMPHOMA HX OF SBO HIATAL HERNIA GASTRITIS HX OF ASCITES HTN KIDNEY STONES UROPATHY HYPOKALEMIA vital signs Vital Sign Date Time Temp Pulse Resp B/P (MAP) Pulse Ox O2 Delivery O2 Flow Rate FiO2 03/16/25 09:00 98.3 57 17 133/81 (98) 94 98.3 03/16/25 07:30 Room Air* 0 21 Total Intake and Output 03/15/25 03/15/25 03/16/25 15:00 23:00 07:00 Intake Total 300 ml 1100 ml 700 ml Output Total 2350 ml 2000 ml Balance 300 ml -1250 ml -1300 ml medications Current Medications Medications Dose Ordered Sig/Lauri Route Start Time Stop Time Status Last Admin Dose Admin Atorvastatin Calcium 20 mg HS PO 03/13/25 22:00 03/15/25 22:10 20 MG Amlodipine Besylate 10 mg DAILY PO 03/14/25 10:00 03/16/25 08:41 10 MG Clonidine HCl 0.1 mg Q4HP PRN PO 03/13/25 21:00 03/14/25 01:18 0.1 MG Sodium Chloride 10 ml Q8HR IV 03/13/25 22:00 03/16/25 06:03 10 ML Acetaminophen/ Hydrocodone Bitart 1 tab Q4HP PRN PO 03/13/25 21:00 Docusate Sodium 100 mg BIDPRN PRN PO 03/13/25 21:00 Acetaminophen 650 mg Q6HP PRN PO 03/13/25 21:00 Tamsulosin HCl 0.4 mg QPM PO 03/14/25 18:00 03/15/25 19:45 0.4 MG Memantine 5 mg DAILY PO 03/14/25 10:00 03/16/25 08:34 5 MG Ciprofloxacin 500 mg Q12HR PO 03/15/25 22:00 03/16/25 08:34 500 MG laboratory and microbiology Laboratory Tests 03/16/25 06:31 Test 03/16/25 06:31 Range/Units Serum Glucose 93 74-106 mg/dL Problem List OBSTRUCTIVE UROPATHY NOW WITH PALPITATION ECG NEGATIVE TROPONIN NEGATIVE ECHO NL EF 2022 [facility] NON [place] LYMPHOMA HX OF SBO HIATAL HERNIA GASTRITIS HX OF ASCITES HTN KIDNEY STONES UROPATHY HYPOKALEMIA Assessment/Plan CORRECT HYPOKALEMIA CONT TELE MONITOR HYPOKALEMIA STILL NOT CORRECTED Plan discussed with: Patient HUE FINNEY MD Mar 16, 2025 12:42
--- NOTE | 2025-03-16 14:45 | DVHPN2 ---
Progress Note Date Seen: Mar 16, 2025 Resident Creating Document: NINI BARNARD RESIDENT Medical Necessity Reason Pt with a Central, PICC or Fol: No Subjective Review of Systems 69-year-old presented to the ER with a chief complaint of inability to urinate and abdominal pain. Patient underwent colonoscopy on March 10, and has been experiencing abdominal pain and difficulty urination. He does have history of BPH and kidney stones. Patient became disoriented and was confused and therefore family decided to bring the patient into the ER. In the ER, Fisher catheter was placed which relieved his obstruction. Patient denies chest pain, dizziness, shortness of breaths on my evaluation. EKG was completed on arrival which showed tachycardia, heart rate 144, with absent P waves but regular RR interval Patient reports that he has had a stress test 5 years back which was normal, left heart angiogram 10 years back which was unremarkable. He does report that he has a enlarged heart. Patient was diagnosed with a obstructive uropathy with 1 cm kidney stone Cardiology consulted for palpitations, clearance for lithotripsy. Per urology note, patient will be requiring Outpatient lithotripsy of the left kidney stone and diagnostic cystoscopy to be arranged Past medical history: Hypertension, Non-Hodgkin lymphoma on chemotherapy, now in remission, hiatal hernia, gastritis, multiple kidney stones-last time 2 years back, obstructive uropathy Home medication: Tamsulosin, hydralazine as needed, losartan 50 mg Mapping Editor: Dr. Mary 03/15-Patient seen and examined in room 247 B, telemetry reviewed, shows episodes of sinus bradycardia with a heart rate going as low as 49 bpm. 03/16-Patient seen and examined, no acute distress. Objective vital signs Vital Sign Date Time Temp Pulse Resp B/P (MAP) Pulse Ox O2 Delivery O2 Flow Rate FiO2 03/16/25 09:00 98.3 57 17 133/81 (98) 94 98.3 03/16/25 07:30 Room Air* 0 21 Total Intake and Output 03/15/25 03/15/25 03/16/25 15:00 23:00 07:00 Intake Total 300 ml 1100 ml 700 ml Output Total 2350 ml 2000 ml Balance 300 ml -1250 ml -1300 ml medications Current Medications Medications Dose Ordered Sig/Lauri Route Start Time Stop Time Status Last Admin Dose Admin Atorvastatin Calcium 20 mg HS PO 03/13/25 22:00 03/15/25 22:10 20 MG Amlodipine Besylate 10 mg DAILY PO 03/14/25 10:00 03/16/25 08:41 10 MG Clonidine HCl 0.1 mg Q4HP PRN PO 03/13/25 21:00 03/14/25 01:18 0.1 MG Sodium Chloride 10 ml Q8HR IV 03/13/25 22:00 03/16/25 06:03 10 ML Acetaminophen/ Hydrocodone Bitart 1 tab Q4HP PRN PO 03/13/25 21:00 Docusate Sodium 100 mg BIDPRN PRN PO 03/13/25 21:00 Acetaminophen 650 mg Q6HP PRN PO 03/13/25 21:00 Tamsulosin HCl 0.4 mg QPM PO 03/14/25 18:00 03/15/25 19:45 0.4 MG Memantine 5 mg DAILY PO 03/14/25 10:00 03/16/25 08:34 5 MG Ciprofloxacin 500 mg Q12HR PO 03/15/25 22:00 03/16/25 08:34 500 MG Examination Obese male patient lying in the bed comfortably, no acute distress General: Obese, afebrile, palor, mucosae are moist Cardiovascular: Regular S1 and S2. No murmurs, gallops or rubs. No JVD elevation. Minimal nonpitting edema Respiratory: Normal B/L air entry on room air. Clear lung sounds on auscultation Abdomen: Soft, nontender, nondistended, normoactive bowel sounds, no rebound tenderness, no organomegaly, no masses Genitourinary: Deferred MSK/skin: Mobilizes 4 limbs. Skin is dry and warm Neurological: No motor, no sensitive deficits, normal speech. Pupils are isocoric and reactive. Psych/Mental Status: A/Ox3 laboratory and microbiology Laboratory Tests 03/16/25 06:31 Test 03/16/25 06:31 Range/Units Serum Glucose 93 74-106 mg/dL Microbiology Date/Time Source Procedure Growth Status 03/14/25 00:50 Nose MRSA Screen - Final Complete Labs and/or images reviewed: Labs reviewed by me, Image(s) reviewed by me Problem List/Assessment/Plan Problem List/Assessment/Plan SVT likely in the setting of obstructive uropathy hypertension Acute urinary retention Nonobstructing left renal calculi Likely bladder outlet obstruction and benign prostatic hyperplasia Mild bilateral hydronephrosis Obesity EKG was completed on arrival which showed tachycardia, heart rate 144, with absent P waves but regular RR interval. Troponin 12, 16, [address] abdomen shows Moderate distention of the urinary bladder with mild perivesical stranding which could reflect cystitis. Correlate with urinalysis. That could be a component of bladder outlet obstruction given prostatomegaly. Calcified coronary artery disease up to moderate in the left anterior descending coronary artery. Mild splenomegaly. Nonobstructing left renal calculi. Plan/Recommendation Given the clinical picture, SVT was likely in the setting of acute urinary retention. Patient is currently sinus bradycardic, as low as 49 beats per minute. Per , this is something chronic and he follows Dr. Mary as outpatient. Repeat EKG shows sinus rhythm. Echocardiogram shows EF 55%, left atrial enlargement, [id number] AI, aortic root dilation. No acute cardiology intervention indicated at this time. We will sign off. Please reconsult us if deemed necessary. Discontinue beta jealni given bradycardia Orthostatic vitals pending Replenish electrolytes, maintain K greater than 4, Mag greater than 2 Strict I&Os Rest of management per primary team Thank you for consulting Cardiology Plan discussed with patient, patient's in which all questions have been answered Case discussed with Dr. Vaca Plan discussed with: Patient Visit Coding Cardiology RES Date of Service: Mar 16, 2025 Billing Provider: HUE FINNEY MD Cardiology Common Codes: [id number] [id number] CARE(NINI Bledsoe RESIDENT Mar 16, 2025 14:45
[2025-03-17 00:54] VITALS: BP 152/94; PULSE 67; RESP 17; TEMP 98.2; O2SAT 95
[2025-03-17 04:55] VITALS: BP 102/63; PULSE 63; RESP 18; TEMP 98.6; O2SAT 95
[2025-03-17 06:46] LABS: Hematocrit 38.3 % (41.0-53.0); Hemoglobin 13.3 g/dL (13.5-17.5); Mean Corpuscular Hemoglobin 28.8 pg (28.0-32.0); Mean Corpuscular Volume 82.8 fL (80.0-100.0); Nucleated Red Blood Cells % 0.1 %
[2025-03-17 07:07] LABS: Anion Gap 8 (5-15); Calcium 8.9 mg/dL (8.7-10.4); Carbon Dioxide 30 mmol/L (20-31); Potassium 3.8 mmol/L (3.5-5.1)
[2025-03-17 07:13] LABS: BUN/Creatinine Ratio 20.9 (10.0-20.0); Blood Urea Nitrogen 14 mg/dL (9-23); Glucose 98 mg/dL (74-106)
[2025-03-17 07:23] LABS: Chloride 107 mmol/L (98-107); Sodium 145 mmol/L (136-145)
[2025-03-17 08:00] VITALS: PULSE 61; PULSE 74; RESP 20; O2SAT 95
[2025-03-17 10:00] VITALS: BP 137/81; PULSE 61; RESP 20; TEMP 98.7; O2SAT 95
--- NOTE | 2025-03-17 11:29 | DVHDS2 ---
Discharge Summary Date of Admission Mar 13, 2025 at 21:30 Date of Discharge: Mar 17, 2025 Labs/Diagnostic Data: Laboratory Results Test 03/17/25 06:07 03/16/25 06:31 03/15/25 06:31 03/14/25 04:36 White Blood Count 4.5 10^3/uL (4.4-10.8) Red Blood Count 4.62 10^6/uL (4.5-5.90) Hemoglobin 13.3 g/dL (13.5-17.5) Hematocrit 38.3 % (41.0-53.0) Mean Corpuscular Volume 82.8 fL (80.0-100.0) Mean Corpuscular Hemoglobin 28.8 pg (28.0-32.0) Mean Corpuscular Hemoglobin Concent 34.7 g/dL (32.0-36.0) Red Cell Distribution Width 13.1 % (11.8-14.3) Platelet Count 145 10^3/uL (140-450) Mean Platelet Volume 8.5 fL (6.9-10.8) Neutrophils (%) (Auto) 72.5 % (37.0-80.0) Lymphocytes (%) (Auto) 16.1 % (10.0-50.0) Monocytes (%) (Auto) 6.9 % (0.0-12.0) Eosinophils (%) (Auto) 3.7 % (0.0-7.0) Basophils (%) (Auto) 0.8 % (0.0-2.0) Neutrophils # (Auto) 3.3 10 ^3/uL (1.6-8.6) Lymphocytes # (Auto) 0.7 10 ^3/uL (0.4-5.4) Monocytes # (Auto) 0.3 10 ^3/uL (0-1.3) Eosinophils # (Auto) 0.2 10 ^3/uL (0-0.8) Basophils # (Auto) 0 10 ^3/uL (0-0.2) Nucleated Red Blood Cells 0.1 % Sodium Level 145 mmol/L (136-145) Potassium Level 3.8 mmol/L (3.5-5.1) Chloride Level 107 mmol/L (98-107) Carbon Dioxide Level 30 mmol/L (20-31) Anion Gap 8 (5-15) Blood Urea Nitrogen 14 mg/dL (9-23) Creatinine 0.67 mg/dL (0.700-1.30) Glomerular Filtration Rate Calc 102 mL/min (>90) BUN/Creatinine Ratio 20.9 (10.0-20.0) Serum Glucose 98 mg/dL (74-106) Calcium Level 8.9 mg/dL (8.7-10.4) Magnesium Level 2.0 mg/dL (1.6-2.6) Triglycerides Level 117 mg/dL (< 150) Cholesterol Level 120 mg/dL (< 200) LDL Cholesterol 71 mg/dL (< 100) HDL Cholesterol 29 mg/dL (40-59) Thyroid Stimulating Hormone (TSH) 1.74 uIU/mL (0.55-4.78) Free Thyroxine (T4) Calculated 1.30 ng/dL (0.89-1.76) Total Bilirubin 0.6 mg/dL (0.2-1.0) Aspartate Amino Transferase (AST) 15 U/L (13-40) Alanine Aminotransferase (ALT) < 9 U/L (7-40) Alkaline Phosphatase 92 U/L (46-116) Total Protein 5.6 g/dL (5.7-8.2) Albumin 3.7 g/dL (3.2-4.8) Free Prostate Specific Antigen 0.70 ng/mL (N/A) Percent Free Prostate Specific Ag 38.9 % (.) Prostate Specific Antigen Total 1.8 ng/mL (0.0-4.0) Test 03/13/25 22:21 03/13/25 20:56 03/13/25 19:55 Urine Color Colorless (Yellow) Urine Clarity Clear (Clear) Urine pH 7.0 (5.0-9.0) Urine Specific [place] 1.005 (1.001-1.035) Urine Protein Negative (Negative) Urine Ketones Negative (Negative) Urine Blood 2+ /uL (Negative) Urine Nitrite Negative (Negative) Urine Bilirubin Negative (Negative) Urine Urobilinogen Normal mg/dL (Negative) Urine Leukocyte Esterase Negative /uL (Negative) Urine RBC 9 /hpf (0 - 3) Urine Microscopic WBC < 1 /HPF (0-3) Urine Squamous Epithelial Cells None seen /hpf (<5) Urine Bacteria None seen /hpf (None Seen) Urine Glucose Normal mg/dL (Normal) Troponin I High Sensitivity 36 ng/L (</=54) D-Dimer, Quantitative 0.29 mg/L FEU (0.0-0.49) Hemoglobin A1c 4.8 % A1C (<5.7) Lactic Acid Level 1.3 mmol/L (0.4-2.0) B-Type Natriuretic Peptide 49.20 pg/mL (0-100) Other Laboratory Tests 03/17/25 06:07 Brief Hx & Hospital Course: see dictated note Condition at Discharge: Fair Final Diagnosis/Problems List urinary retention Discharge Disposition: Home Discharge Instruct/Medications Diet: Cardiac 2g Na,low cholest Activity: No Restrictions, As Tolerated Follow Up/Referral: fu with dr Vaca and urology/dr Maloney Medications: resume home meds chandler with leg bag Scheduled Cholecalciferol (Vitamin D3), 1 TAB PO DAILY, (Reported) Esomeprazole Magnesium Trihydr (Nexium), 1 CAP PO DAILY, (Reported) Ferrous Sulfate (Ferrous Sulfate), 325 MG PO DAILY, (Reported) Hydralazine Hcl (Hydralazine Hcl), 25 MG PO BID, (Reported) Losartan Potassium (Losartan Potassium), 50 MG PO BID, (Reported) Multiple Vitamin (Multivitamins), 1 TAB PO DAILY, (Reported) Pantoprazole Sodium Sesquihydr (Protonix), 40 MG PO BID Simvastatin (Simvastatin), 20 MG PO HS, (Reported) Sucralfate (Sucralfate), 1 GM PO BID Tamsulosin Hcl (Tamsulosin Hcl), 0.4 MG PO HS, (Reported) Discharge Statement: "Patient was advised to return to the ER or call 911 if any headaches, dizziness, shortness of breath, chest pain, abdominal pain, bleeding, fevers, or worsening of medical condition. Patient was counseled about treatment plan, medications, possible side effects, patientverbalized understanding. All questions were answered to the best of my ability. This discharge took greater then 30 minutes in planning, reviewing documentation, counseling the patient, and discussing with other team members." ASSESSMENT ASSESSMENT Assessment urinary retention Date of Service: Mar 17, 2025 Billing Provider: ROLLY KUMAR MD Common Visit Codes: 50938-BMU/OBS DISCH DAY >30min ROLLY KUMAR MD Mar 17, 2025 11:29
--- NOTE | 2025-03-17 12:01 | DVHDS ---
DATE OF DISCHARGE: 03/17/2025 The patient is a 69-year-old gentleman who came in with history of difficulty in urination and confusion and has history of non-Hodgkin's lymphoma in remission, dementia, hyperlipidemia, and hypertension. HOSPITAL COURSE: The patient had a CT of abdomen and pelvis that showed moderate distention of urinary bladder with mild bilateral hydronephrosis and nonobstructing left renal calculi. He was seen in Urology consult by Dr. Maloney and had a Fisher catheter placed. 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 The patient was seen in Cardiology consult by Dr. Vaca. The patient was hypokalemic and that was corrected. His CBC was within normal limits. The patient will now be discharged home with indwelling Fisher to resume his home medications and follow up with Dr. Maloney from Urology and Dr. Vaca. Echocardiogram done showed ejection fraction of 50%-55%. FINAL DIAGNOSES: * BPH with urinary retention, status post Fisher placement. * Left renal calculi. * Non-Hodgkin's lymphoma. * Dementia. * Hypertension. * Hyperlipidemia. * Hypokalemia. Time spent in discharge planning and review of plan with the patient and nursing was 38 minutes. MD PITO Montemayor/MASOOD TID: [id number] RECEIPT: [id number]
[2025-03-17 12:17] VITALS: BP 146/81; PULSE 80; RESP 13; TEMP 98; O2SAT 99
[2025-03-17 12:53] VITALS: BP 150/94; PULSE 71; RESP 71; TEMP 98.4; O2SAT 20
--- NOTE | 2025-03-17 13:46 | DVHPN2 ---
Progress Note - Dictate Date Seen: Mar 17, 2025 Medical Necessity Reason Pt with a Central, PICC or Fol: No Subjective PT WITH OBSTRUCTIVE UROPATHY NOW WITH PALPITATION ECG NEGATIVE TROPONIN NEGATIVE ECHO NL EF 2022 PMH NON HODGKIN LYMPHOMA HX OF SBO HIATAL HERNIA GASTRITIS HX OF ASCITES HTN KIDNEY STONES UROPATHY HYPOKALEMIA vital signs Vital Sign Date Time Temp Pulse Resp B/P (MAP) Pulse Ox O2 Delivery O2 Flow Rate FiO2 03/17/25 12:53 98.4 71 71 150/94 (112) 20 98.4 03/17/25 08:00 Room Air* 0 21 Total Intake and Output 03/16/25 03/16/25 03/17/25 15:00 23:00 07:00 Intake Total 1450 ml 820 ml Output Total 2100 ml 1841 ml Balance -650 ml -1021 ml medications Current Medications Medications Dose Ordered Sig/Lauri Route Start Time Stop Time Status Last Admin Dose Admin Atorvastatin Calcium 20 mg HS PO 03/13/25 22:00 03/16/25 21:32 20 MG Amlodipine Besylate 10 mg DAILY PO 03/14/25 10:00 03/17/25 09:20 10 MG Clonidine HCl 0.1 mg Q4HP PRN PO 03/13/25 21:00 03/14/25 01:18 0.1 MG Sodium Chloride 10 ml Q8HR IV 03/13/25 22:00 03/17/25 05:58 10 ML Acetaminophen/ Hydrocodone Bitart 1 tab Q4HP PRN PO 03/13/25 21:00 Docusate Sodium 100 mg BIDPRN PRN PO 03/13/25 21:00 Acetaminophen 650 mg Q6HP PRN PO 03/13/25 21:00 Tamsulosin HCl 0.4 mg QPM PO 03/14/25 18:00 03/16/25 17:06 0.4 MG Memantine 5 mg DAILY PO 03/14/25 10:00 03/17/25 09:20 5 MG Ciprofloxacin 500 mg Q12HR PO 03/15/25 22:00 03/17/25 09:20 500 MG laboratory and microbiology Laboratory Tests 03/17/25 06:07 Test 03/17/25 06:07 Range/Units Serum Glucose 98 74-106 mg/dL Problem List OBSTRUCTIVE UROPATHY NOW WITH PALPITATION ECG NEGATIVE TROPONIN NEGATIVE ECHO NL EF 2022 PMH NON HODGKIN LYMPHOMA HX OF SBO HIATAL HERNIA GASTRITIS HX OF ASCITES HTN KIDNEY STONES UROPATHY HYPOKALEMIA Assessment/Plan CORRECT HYPOKALEMIA CONT TELE MONITOR HYPOKALEMIA CORRECTED 3.8 Plan discussed with: Patient HUE FINNEY MD Mar 17, 2025 13:46
== END 2025-03-17 13:35 | disposition home health service (06) | DRG 694 ==
LOC: EDBD 19:22 → ER 19:26 → OVERFLOW 21:30 → TELE-CENTR 22:03 → TELE-EAST 03-14 19:19
PROVIDERS: ADMIT Internal Medicine; ATTEND Internal Medicine
DX: N13.2 Hydronephrosis with renal and ureteral calculous obstruction (principal); I47.10 Supraventricular tachycardia, unspecified; C85.9A Non-Hodgkin lymphoma, unspecified, in remission; F03.90 Unspecified dementia, unspecified severity, without behavioral disturbance, psychotic disturbance, mood disturbance, and anxiety; I10 Essential (primary) hypertension; E66.9 Obesity, unspecified; N40.1 Benign prostatic hyperplasia with lower urinary tract symptoms; I25.10 Atherosclerotic heart disease of native coronary artery without angina pectoris; E87.6 Hypokalemia; H54.8 Legal blindness, as defined in USA; E78.5 Hyperlipidemia, unspecified; N32.89 Other specified disorders of bladder; Z82.49 Family history of ischemic heart disease and other diseases of the circulatory system; Z83.3 Family history of diabetes mellitus; Z86.73 Personal history of transient ischemic attack (TIA), and cerebral infarction without residual deficits; Z87.442 Personal history of urinary calculi; Z68.34 Body mass index [BMI] 34.0-34.9, adult
CPT/HCPCS: 36415; 70450; 71045; 74176; 80048; 80053; 80061; 81001; 83036; 83605; 83735; 83880; 84154; 84439; 84443; 84484; 85025; 85379; 86850; 86900; 86901; 87081; 93005; 93306; 99291; G0378